=== PATIENT | female | born 1950 | race Caucasian/White ===

== ENCOUNTER 2018-08-26 02:16 | Outpatient (CLI) | payer OTHER, SELFPAY ==
[2018-08-26 09:19] LABS: Anion Gap 8.7 mmol/L (3-11); BUN 13 mg/dL (7-18); CO2 29.3 mmol/L (21.0-32.0); CREATININE 0.84 mg/dL (0.55-1.02); Calcium 9.2 mg/dL (8.5-10.1); Chloride 105 mmol/L (98-107); Cholesterol 215 mg/dL (50-200); Glucose 97 mg/dL (70-100); HDL Cholesterol 86 mg/dL (40-60); LDL CHOLESTEROL 111 mg/dL (<100); Potassium 4.1 mmol/L (3.5-5.1); Sodium 143 mmol/L (136-145); Triglyceride 44 mg/dL (30-150)
== END 2018-08-26 02:36 ==
PROVIDERS: PCP Nurse Practitioner Family; Visit Provider Nurse Practitioner Family
DX: Z00.00 Encounter for general adult medical examination without abnormal findings (principal); Z13.220 Encounter for screening for lipoid disorders; Z13.228 Encounter for screening for other metabolic disorders
CPT/HCPCS: 36415; 80048; 80061; 83721

== ENCOUNTER 2018-09-02 16:56 | Outpatient (REF) | payer OTHER, SELFPAY ==
[2018-09-05 10:28] LABS: CA 125 9 U/mL (0-30)
== END 2018-09-02 17:16 ==
LOC: NCHCN 16:56
PROVIDERS: PCP Nurse Practitioner Family; Visit Provider Nurse Practitioner Family
DX: Z12.73 Encounter for screening for malignant neoplasm of ovary (principal); Z80.41 Family history of malignant neoplasm of ovary
CPT/HCPCS: 86304

== ENCOUNTER 2018-09-14 00:42 | Outpatient (CLI) | payer OTHER, SELFPAY ==
--- NOTE | 2018-09-14 15:30 | DI.MAMMO_ITS ---
SYMPTOM/DIAGNOSIS: SCREENING, Z12.39 MAMMOGRAMS: Mammograms were interpreted according to the usual protocol including computer analysis with CAD system, tomosynthesis and C view imaging. Comparison with prior examinations. Breast density D. No suspicious masses or microcalcifications are seen. There is no definite evidence of malignancy. IMPRESSION: Negative mammogram. Routine screening is recommended. Category I. MQSA ASSESSMENT OF FINDINGS: Negative. Category 1. Patient will receive a letter notifying them of these results. BI-RADS category D. The breasts are extremely dense, which lowers the sensitivity of mammography.
== END 2018-09-14 01:02 ==
PROVIDERS: PCP Nurse Practitioner Family; Visit Provider Nurse Practitioner Family
DX: Z00.00 Encounter for general adult medical examination without abnormal findings (principal); Z12.31 Encounter for screening mammogram for malignant neoplasm of breast
CPT/HCPCS: 77063; 77067

== ENCOUNTER 2019-11-03 14:03 | Observation (INO) | payer OTHER, SELFPAY ==
[2019-11-03] VITALS (65 sets, daily range): BP systolic 86–138; BP diastolic 52–86; PULSE 58–209; RESP 12–27; TEMP 36.7–37.2; O2SAT 96–100
--- NOTE | 2019-11-03 14:00 | RT.EKG_ITS ---
APPROVED REPORT Exam: Resting ECG Patient Location: E HR:84 bpm ECG Measurements Heart Rate 84 AXIS SD 140 P 103 QRSd 78 QRS 92 QT 360 T 61 QTc 427 <Conclusion> Sinus rhythm...normal P axis, V-rate 84
--- NOTE | 2019-11-03 14:00 | RT.EKG_ITS ---
APPROVED REPORT Exam: Resting ECG Patient Location: E HR:204 bpm ECG Measurements Heart Rate 204 AXIS VT 123 P 78 QRSd 76 QRS 101 QT 255 T 12 QTc 472 <Conclusion> Supraventricular tachycardia...
--- NOTE | 2019-11-03 14:14 | W.ED.GENAD ---
Discharge Plan Disposition Patient Disposition: [facility] INPATIENT Condition: Improving Discharge Details Chief Complaint: Palpitatns Clinical Impression: SVT (supraventricular tachycardia), Elevated troponin I level Admit Date/Time: 11/03/19 18:09 Admit Provider: Rancho Robledo Attending Provider: Rancho Robledo Primary Care Provider: Mariajose Cerda ED Provider: Aranza Ramirez Discharge Instructions Instructions: Supraventricular Tachycardia (ED) Referrals: Rancho Cerrato MD [MD CONSULTING PHYSICIAN] - Mariajose Cerda [Primary Care Provider] - Discharge Data Discharge Date/Time-TO BE ENTERED AT DEPARTURE: 11/03/19 18:53 Medical Decision Making <Federica Tobar - Last Filed: 11/04/19 10:03> Patient presents in SVT with a rate of 204 is awake and alert responsive denies chest pain. Patient states that she was washing her windows prior to arrival onset began approximately 2 hours ago, when began having palpitations. Denies any fever, nausea vomiting diarrhea or any other symptoms. No significant past medical history no known drug allergies does not take medications on a regular basis. 1422: Patient presented in SVT with a rate of 209, there was an episode of possible loss of consciousness patient quickly became arousable after RN reports sternal rub. My presented back into the room she was awake and talking stated she just closed her eyes for a second. Is milligrams of adenosine was given rapid IV push by staffing program manager, patient was placed on pads and nuclear monitoring technician prior to administration of medication. Dr. Mejia ER attending was at bedside for assistance. Patient did convert into a normal sinus rhythm after the first 6 mg of adenosine with a rate of 86, her blood pressure currently now is 118/66, sating 98% on room air. At this time cardiac work-up is pending including serial troponins they are doing a repeat EKG status post conversion from SVT. 1454: Spoke with Don patient significant other regarding patient condition and work-up, told patient that significant other called. EXAM: XR PORTABLE CHEST AP CLINICAL HISTORY: SVT TECHNIQUE: 2D digital imaging was performed. COMPARISON: No exams were available for comparison FINDINGS: MEDIASTINUM: Normal. HEART: Normal. PULMONARY VASCULATURE: Normal. LUNGS: The lungs appear hyperinflated suggesting COPD. No focal consolidating infiltrates. PLEURAL SPACE: No pleural effusion or pneumothorax. BONE:Within normal limits for the patient's age. OTHER FINDINGS:There is overlying monitoring equipment present. IMPRESSION: No acute pulmonary findings. Plan is to repeat troponin now discharged with a Holter monitor and have patient follow-up with cardiology. Patient has continued to be chest pain-free, vital signs are stable patient is ambulatory up to the bathroom without difficulty. Discussed initial lab results with patient, discuss strict return instructions, verbalized understanding. Instructed to return to the ED for any worsening chest pain, shortness of breath or palpitations. Will place patient on cardiology follow-up list. 1713: Repeat troponin came back elevated at 0.49 this changes disposition to most likely admission for observation repeat serial troponins. Care is to be handed off to oncoming provider ASPEN Mims. Being to bedside evaluation done in conjunction with Aranza she agrees with plan of care. Lab Data Lab results reviewed: Yes I reviewed the patient's lab results. <Cuco Mejia MD - Last Filed: 11/03/19 18:33> Patient examined [id number] in conjunction with Ms. Tobar. I agree with her assessment and plan. I was present for hall portions of bedside management including IV push of adenosine. <ASPEN Mims - Last Filed: 11/03/19 23:29> Care transition to myself from Sunita Coker NP, with repeat troponin pending. Please please see her initial note regarding history, physical exam and concerns thus far. In brief, the patient presents today in SVT and was converted with adenosine. Has not had any chest pain. Normal laboratory evaluation thus far. EKG after conversion showed normal sinus rhythm with no acute ischemic changes. Repeat troponin is bumped at 0.49. Repeat EKG does not show any evidence of ischemia, this was reviewed by Dr. Mejia and appears unchanged from previous. At this point, this is most likely associated with demand ischemia. Her initial heart rate when she came in was 209. Discussed the case with hospitalist, Dr. Robledo, who agrees to admit the patient for continued monitoring. Discussed admission with the patient who is in agreement. HPI <Federica Tobar - Last Filed: 11/04/19 10:03> General Mode of arrival: ambulatory. Date/Time Provider Initiated Documentation: 11/03/19 14:12. Limitations to Documentation: physical limitation. Information obtained by: patient. HPI Narrative: Patient presents in SVT with a rate of 204 is awake and alert responsive denies chest pain. Patient states that she was washing her windows prior to arrival onset began approximately 2 hours ago, when began having palpitations. Denies any fever, nausea vomiting diarrhea or any other symptoms. No significant past medical history no known drug allergies does not take medications on a regular basis. Related Data Home Medications Medication Instructions Recorded Confirmed Unknown [No Known Home Meds] 11/03/19 11/03/19 Allergies Allergy/AdvReac Type Severity Reaction Status Date / Time No Known Allergies Allergy Unverified 11/03/19 14:27 Review of Systems <Federicagarcia [place]oddton - Last Filed: 11/04/19 10:03> Narrative: Constitutional: Negative for weight loss, alert and oriented, well groomed, normal body habitus, appears comfortable. HEENT: Denies trauma, headaches, blurry vision, nasal discharge, sore throat, trouble swallowing. Chest: Denies chest pain,hypertension. Positive palpitations. Respiratory: Denies Shortness of breath, cough, hemoptysis. GI: Denies abdominal pain, nausea, vomiting, diarrhea, constipation. : Denies dysuria, hematuria, flank pain, rectal bleeding. Neuro: Denies dizziness, blurry vision, weakness, syncope, headache or facial numbness. Hematologic: Denies easy bruising, intolerance to heat or cold, hair loss. PFSH <Federica [facility] Filed: 11/04/19 10:03> Medical History Asthma (Chronic) Knotting of intestine, bowel or colon (Acute) Surgical History History of appendectomy (Chronic) History of tonsillectomy (Chronic) Hx of colonoscopy (Chronic) Social History Smoking/Tobacco Use Status: Never Alcohol Intake: never Substance use type: does not use Do you feel safe at home: Yes Do you feel safe in your relationship?: Yes Exam [facility] Filed: 11/04/19 10:03> Narrative Exam Narrative: Constitutional: Alert and oriented x3. Appears stated age. Normal body habitus. Head: Normocephalic, no trauma. Eyes: Pupils PERRLA, Red reflex noted, EOM's intact. Eyelids symmetrical without lesions, discharge, or swelling. ENT: Bilateral TM's WNL, External ear normal to inspection, no mastoid TTP, swelling, or erythema, Nasal turbinates WNL, no nasal discharge. Normal dentition, Posterior pharynx WNL, no exudate. Chest: Narrow complex tachycardia consistent with SVT at a rate of 209 initially, converted with 1 dose of adenosine 6 mg rapid IV push patient remained stable throughout the procedure, normal S1, S2, distal pulses intact. Resp: Lungs clear to auscultation bilaterally, no wheezes, rales, or rhonchi. Musculoskeletal: Normal gait, 5/5 strength to all four extremities. Skin: No suspicious rashes or lesions. Capillary refill less than 2 sec. Neurologic: Cranial nerves II-XII intact. Alert and oriented x 3. DTR's intact. Hematologic/Lymphatic: No ecchymosis, no lymphadenopathy. Critical Care Time <Federica Tobar - Last Filed: 11/04/19 10:03> Critical Care Time Critical Care Time: Yes Total Critical Care Time: 35 Attestation: I spent greater than 35 minutes addressing this patient's acute life threatening illness. This time was spent engaged in actions directly related to the patient's care. Failure ti initiate these interventions would have likely resulted in clinically significant or life threatening deterioration in the patients condition.
--- NOTE | 2019-11-03 14:15 | RT.EKG_ITS ---
APPROVED REPORT Exam: Resting ECG Patient Location: E HR:74 bpm ECG Measurements Heart Rate 74 AXIS OH 134 P 69 QRSd 77 QRS 85 QT 379 T 61 QTc 416 <Conclusion> Sinus rhythm...normal P axis, Atrial premature complex.
[2019-11-03] MEDS: Normal Saline 1,000 ML 1000 ML IV (14:19)
[2019-11-03] MEDS: Adenosine 6 MG/2 ML VIAL IVP (14:19)
[2019-11-03 14:22] LABS: Abs Immature Grans 0.01 k/cumm (0.0-0.09); Absolute Basophil Count 0.03 k/cumm (0.0-0.2); Absolute Eosinophil Count 0.08 k/cumm (0.0-0.7); Absolute Lymphocyte Count 1.73 k/cumm (1.2-3.4); Absolute Monocyte Count 0.54 k/cumm (0.11-0.7); Absolute Neutrophil Count 5.42 k/cumm (1.2-6.7); Basophils % 0.4; HCT 39.5 % (36.0-46.0); Immature Grans % 0.1 %; Lymphocytes % 22.2; Mean Corp. HGB Concentration 32.9 g/dL (32.0-36.0); Mean Corpuscular Hemoglobin 29.5 pg (27.0-33.0); Mean Corpuscular Volume 89.8 fL (80-95); Mean Platelet Volume 8.9 fL (8.0-11.0); Monocytes % 6.9; Neutrophils % 69.4; Platelet Count 393 x1000/uL (130-400); RBC Distribution Width 13.3 % (11.7-14.6); White Blood Cell Count 7.81 k/cumm (4.4-10.8)
[2019-11-03 14:37] LABS: ALT 23 U/L (14-59); AST 24 U/L (15-37); Albumin 3.3 g/dL (3.4-5.0); Alkaline Phosphatase 64 U/L (46-116); Anion Gap 9.1 mmol/L (3-11); BUN 11 mg/dL (7-18); Bilirubin, Total 0.4 mg/dL (0.2-1.0); CO2 26.9 mmol/L (21.0-32.0); CREATININE 0.83 mg/dL (0.55-1.02); Calcium 9.3 mg/dL (8.5-10.1); Chloride 101 mmol/L (98-107); Glucose 111 mg/dL (74-106); Magnesium 1.9 mg/dL (1.8-2.4); Potassium 4.1 mmol/L (3.5-5.1); Sodium 137 mmol/L (136-145); Total Protein 7.1 g/dL (6.4-8.2); Troponin I < 0.05 ng/mL (<0.06)
--- NOTE | 2019-11-03 14:41 | DI.RAD_ITS ---
EXAM: XR PORTABLE CHEST AP CLINICAL HISTORY: SVT TECHNIQUE: 2D digital imaging was performed. COMPARISON: No exams were available for comparison FINDINGS: MEDIASTINUM: Normal. HEART: Normal. PULMONARY VASCULATURE: Normal. LUNGS: The lungs appear hyperinflated suggesting COPD. No focal consolidating infiltrates. PLEURAL SPACE: No pleural effusion or pneumothorax. BONE:Within normal limits for the patient's age. OTHER FINDINGS:There is overlying monitoring equipment present. IMPRESSION: No acute pulmonary findings. DATA REPOSITORY: RADIATION DOSE DELIVERED:
[2019-11-03 14:57] LABS: TSH 2.03 uIU/mL (0.36-3.74)
--- NOTE | 2019-11-03 16:34 | NUR.NOTE ---
Nursing Note: Referral fax to cardiology
[2019-11-03 16:54] LABS: Troponin I 0.49 ng/mL (<0.06)
--- NOTE | 2019-11-03 17:56 | W.PM.HP.N ---
Date of service: 11/03/19 Time of Service: 17:57 Assessment and Plan Assessment and plan (1) SVT (supraventricular tachycardia): Status: Chronic Assessment and plan: PSVT. Only documented episode, though more likely than not that prior episodes also SVT. No precipitant evident. Troponin bump likely demand ischemia though at present cannot exclude primary ACS, and as potential trigger (this is doubtful). Will monitor overnight and complete r/o. Will also order ECHO though may have to be done as outpatient. Would not institute any preventive treatment at this point -- unless recurrence documented. Reviewed ADs, requests Full Code. History of Present Illness History of Present Illness Chief Complaint: palpitation Narrative: 69 female here with sudden onset palps, several hours. In ER SVT 200 noted, converted with Adenosine. At no point had CP or SOB, and feels fine at present. Initial trop neg, #2 is 0.49. Post conversion EKG WNL Denies EtOH or recreational drugs. TSH and electrolytes WNL. States has had some 5 years of episodic palps, up to twice a year, usually last 20' or so.. Has had Holters but arrythmia never captured. Says today's episode similar, though more prolonged. Review of Systems All systems reviewed & are unremarkable except as noted in HPI and below PFSH Medical History Asthma (Chronic) Knotting of intestine, bowel or colon (Acute) Surgical History History of appendectomy (Chronic) History of tonsillectomy (Chronic) Hx of colonoscopy (Chronic) Social History Smoking/Tobacco Use Status: Never Alcohol Intake: never Substance use type: does not use Do you feel safe at home: Yes Do you feel safe in your relationship?: Yes Meds Home Medications and Allergies Home Medications Medication Instructions Recorded Confirmed Type Unknown [No Known Home Meds] 11/03/19 11/03/19 History Allergies Allergy/AdvReac Type Severity Reaction Status Date / Time No Known Allergies Allergy Unverified 11/03/19 14:27 Exam Narrative Exam Narrative: 110/68, 73, 37.0, 17, 98% RA. HEENT unremarkable. neck supple, lungs clear, heart RRR w/o MRG; abdomen soft NT; extremities w/o edema, pulse 2+/=; neuro Ox3, nonfocal Results Labs Result diagrams: 11/03/19 14:10 11/03/19 14:10 Labs: Laboratory Results - last 24 hr 11/03/19 11/03/19 11/03/19 14:10 14:10 14:10 WBC 7.81 RBC 4.40 Hgb 13.0 Hct 39.5 MCV 89.8 MCH 29.5 MCHC 32.9 RDW 13.3 Plt Count 393 MPV 8.9 Immature Gran % 0.1 Neutrophils % 69.4 Lymphocytes % 22.2 Monocytes % 6.9 Eosinophils % 1.0 Basophils % 0.4 Absolute Neutrophils 5.42 Absolute Lymphocytes 1.73 Absolute Monocytes 0.54 Absolute Eosinophils 0.08 Absolute Basophils 0.03 Sodium 137 Potassium 4.1 Chloride 101 Carbon Dioxide 26.9 Anion Gap 9.1 BUN 11 Creatinine 0.83 Estimated GFR/1.73 m2 >= 60.00 Glucose 111 H Calcium 9.3 Magnesium 1.9 Total Bilirubin 0.4 AST 24 ALT 23 Alkaline Phosphatase 64 Troponin I < 0.05 Total Protein 7.1 Albumin 3.3 L TSH 2.03 11/03/19 16:25 WBC RBC Hgb Hct MCV MCH MCHC RDW Plt Count MPV Immature Gran % Neutrophils % Lymphocytes % Monocytes % Eosinophils % Basophils % Absolute Neutrophils Absolute Lymphocytes Absolute Monocytes Absolute Eosinophils Absolute Basophils Sodium Potassium Chloride Carbon Dioxide Anion Gap BUN Creatinine Estimated GFR/1.73 m2 Glucose Calcium Magnesium Total Bilirubin AST ALT Alkaline Phosphatase Troponin I 0.49 H* Total Protein Albumin TSH Last Vital Signs Temp 37.0 C 11/03/19 14:07 Pulse 75 11/03/19 16:00 Resp 17 11/03/19 16:20 BP 110/68 11/03/19 16:00 Pulse Ox 98 11/03/19 16:20 COVID-19 Screening Have you,or household,traveled outside [place] in last 14 days?: No Had IN PERSON contact w/suspected or confirmed C-19 person: No
[2019-11-03 21:36] LABS: Troponin I 0.76 ng/mL (<0.06)
[2019-11-04] VITALS (21 sets, daily range): BP systolic 91–136; BP diastolic 46–74; PULSE 54–74; RESP 13–21; TEMP 36.9–37.2; O2SAT 97–99
--- NOTE | 2019-11-04 06:30 | RT.EKG_ITS ---
APPROVED REPORT Exam: Resting ECG Patient Location: I HR:60 bpm ECG Measurements Heart Rate 60 AXIS AK 137 P 79 QRSd 84 QRS 92 QT 451 T 71 QTc 449 <Conclusion> Sinus rhythm...normal P axis, V-rate 60- 99
--- NOTE | 2019-11-04 07:21 | NUR.NOTE ---
EKG done as orderfed.
[2019-11-04 07:34] LABS: Troponin I 0.37 ng/mL (<0.06)
--- NOTE | 2019-11-04 10:38 | PGE_ITS ---
Date of Service Date of service: 11/04/19 Time of Service: 10:38 Assessment and Plan Assessment and plan (1) SVT (supraventricular tachycardia): Status: Chronic Assessment and plan: For my review of the EKG I think this is a reentry AV karon tachycardia based on the short RP intervals and appears to have concealed P waves within the T waves. However the patient needs a formal evaluation by an pacs specialist. Patient is feeling fine now would like to return home. Her vital signs are stable. I discussed the case with [facility] manual plate filler on-call, Dr. Gibbs, who recommended initiation of a beta umberto, Toprol XL 50 mg daily and referral to pacs specialist. I discussed this w/ Charleen. She is leary of taking any medications. I explained to her that because of the prolonged episode and potential for adverse events if she has another episode particularly while driving or doing any dangerous work, she ought to consider going on low dose Beta umberto and get outpatient follow up with a local manual plate filler who then can refer her to pacs specialist at [facility]. She also needs outpatient echo to evaluate for structural heart disease and will need some form of stress testing to screen for ischemic HD. I will make a referral to Dr. Cerrato or Dr. Larkin here at [facility] for next week and set up outpatient cardiac event recorder and echo. They can then determine the best form of stress test and maek referral to supplier quality engineer. (2) Elevated troponin I level: Status: Acute Assessment and plan: No ischemic or injury pattern on her repeat EKG this a.m. therefore, the transient elevation in her troponin is likely rate related ischemia. Subjective Subjective Interval history since last seen: 69-year-old female non-smoker with no previous diagnosed cardiac history who presents emergency department with acute persistent PSVT with a heart rate of 204 bpm. Symptoms began around 12 noon yesterday and persisted for couple hours when she presented emergency department around 2 PM yesterday. There was no antecedent chest pain or pressure or dyspnea nor any dizziness or lightheadedness. However while in the emergency department she had a syncopal spell. Her PSVT was aborted with a single dose of adenosine 6 mg IV. EKGs were taken before and after of the PSVT. Troponins were checked and initial troponin is less than 0.05 but peaked at 0.76 last night and is currently down to 0.37 this morning. Repeat EKG was done this morning and shows no acute ischemic changes. Patient's had a history of palpitations for several years now had a previous Holter monitor in 2011 that showed no atrial or ventricular tachydysrhythmias. Normally when she gets these spells only last up to 20 minutes and usually either self abort or she will do carotid massage and the episodes will abort. She is generally very physically active and has no exertional dyspnea or exertional chest pain. There is no family history of arrhythmias. Her father at age 89 due to congestive heart failure but was also a smoker. Exam Narrative Exam Narrative: Petite tanned female who is alert and oriented person place time circumstance. HEENT is unremarkable. Neck is supple without JVD normal carotid pulses no bruits no thyromegaly. Lungs are clear to auscultation. Heart is regular rate and rhythm without appreciable murmur rub or gallop. Extremities without peripheral cyanosis or edema. Objective Objective Clinical Data: Abnormal lab results 11/03/19 11/03/19 11/03/19 Range/Units 14:10 16:25 21:07 Glucose 111 H (74-106) mg/dL Troponin I 0.49 H* 0.76 H* (<0.06) ng/mL Albumin 3.3 L (3.4-5.0) g/dL 11/04/19 Range/Units 06:05 Glucose (74-106) mg/dL Troponin I 0.37 H* (<0.06) ng/mL Albumin (3.4-5.0) g/dL Vital Signs Temperature 36.9 C 11/04/19 08:30 Temperature Source Temporal Artery Scan 11/04/19 08:30 Pulse 61 11/04/19 08:31 Pulse 72 11/04/19 08:31 Respiratory Rate 13 11/04/19 08:31 Respiratory Effort 11/04/19 08:30 Respiratory Depth Normal 11/04/19 08:30 Respiratory Pattern Normal 11/04/19 08:30 Blood Pressure 117/59 L 11/04/19 08:31 Blood Pressure Mean 74 11/04/19 08:31 Blood Pressure Position Supine 11/04/19 08:30 Pulse Oximetry 97 11/04/19 08:31 Oxygen Delivery Method Room Air 11/04/19 08:30 Oxygen Flow Rate 0 11/04/19 08:30 Pain Level 0 11/04/19 08:30 Intake & Output 11/03/19 11/03/19 11/04/19 11:59 23:59 11:59 Intake Total 1000 / 1000 240 / 240 Output Total 425 / 425 400 / 400 Balance 575 / 575 -160 / -160 Weight 38.9 kg 38.8 kg Intake: IV 1000 / 1000 Oral 240 / 240 Output: Urine 425 / 425 400 / 400 Other: Urine Color Yellow Yellow Urine Appearance Clear Clear Urine Odor None None Voiding Methods Bedside Commode Bedside Commode Laboratory Results WBC 7.81 k/cumm (4.4-10.8) 11/03/19 14:10 RBC 4.40 m/cumm (4.00-5.20) 11/03/19 14:10 Hgb 13.0 g/dL (12.0-15.5) 11/03/19 14:10 Hct 39.5 % (36.0-46.0) 11/03/19 14:10 MCV 89.8 fL (80-95) 11/03/19 14:10 MCH 29.5 pg (27.0-33.0) 11/03/19 14:10 MCHC 32.9 g/dL (32.0-36.0) 11/03/19 14:10 RDW 13.3 % (11.7-14.6) 11/03/19 14:10 Plt Count 393 x1000/uL (130-400) 11/03/19 14:10 MPV 8.9 fL (8.0-11.0) 11/03/19 14:10 Immature Gran % 0.1 % 11/03/19 14:10 Neutrophils % 69.4 11/03/19 14:10 Lymphocytes % 22.2 11/03/19 14:10 Monocytes % 6.9 11/03/19 14:10 Eosinophils % 1.0 11/03/19 14:10 Basophils % 0.4 11/03/19 14:10 Absolute Neutrophils 5.42 k/cumm (1.2-6.7) 11/03/19 14:10 Absolute Lymphocytes 1.73 k/cumm (1.2-3.4) 11/03/19 14:10 Absolute Monocytes 0.54 k/cumm (0.11-0.7) 11/03/19 14:10 Absolute Eosinophils 0.08 k/cumm (0.0-0.7) 11/03/19 14:10 Absolute Basophils 0.03 k/cumm (0.0-0.2) 11/03/19 14:10 Sodium 137 mmol/L (136-145) 11/03/19 14:10 Potassium 4.1 mmol/L (3.5-5.1) 11/03/19 14:10 Chloride 101 mmol/L (98-107) 11/03/19 14:10 Carbon Dioxide 26.9 mmol/L (21.0-32.0) 11/03/19 14:10 Anion Gap 9.1 mmol/L (3-11) 11/03/19 14:10 BUN 11 mg/dL (7-18) 11/03/19 14:10 Creatinine 0.83 mg/dL (0.55-1.02) 11/03/19 14:10 Estimated GFR/1.73 m2 >= 60.00 (mL/min/1.73m2) 11/03/19 14:10 Glucose 111 mg/dL (74-106) H 11/03/19 14:10 Calcium 9.3 mg/dL (8.5-10.1) 11/03/19 14:10 Magnesium 1.9 mg/dL (1.8-2.4) 11/03/19 14:10 Total Bilirubin 0.4 mg/dL (0.2-1.0) 11/03/19 14:10 AST 24 U/L (15-37) 11/03/19 14:10 ALT 23 U/L (14-59) 11/03/19 14:10 Alkaline Phosphatase 64 U/L (46-116) 11/03/19 14:10 Troponin I 0.37 ng/mL (<0.06) H* 11/04/19 06:05 Total Protein 7.1 g/dL (6.4-8.2) 11/03/19 14:10 Albumin 3.3 g/dL (3.4-5.0) L 11/03/19 14:10 TSH 2.03 uIU/mL (0.36-3.74) 11/03/19 14:10
--- NOTE | 2019-11-04 11:04 | INITIAL_ITS ---
- If Service Date Differs Date of service: 11/04/19 Time of Service: 11:04 Care Management Initial Assess REASON FOR HOSPITALIZATION:: Supraventricular tachycardia (SVT) PAST MEDICAL HISTORY/PAST SURGICAL HISTORY:: Medical History: Asthma (Chronic) and Knotting of intestine, bowel or colon (Acute). Surgical History: History of appendectomy (Chronic), History of tonsillectomy (Chronic), and Hx of colonoscopy (Chronic). PREVIOUS FUNCTIONAL STATUS/SOCIAL/FAMILY SUPPORTS:: Charleen lives in [facility] with [place], her significant other. 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 In her free time, she enjoys reading, bike riding, gardening, and exercising. Charleen drives and is independent at baseline. Her significant other is a source of support for her. CURRENT FUNCTIONAL STATUS:: Charleen is sitting on the side of the bed when CM comes to meet with her. She is pleasant and easily engages in conversation. She talks about her recent care home and fears associated with the next chapter of her life. CM will continue to follow. ADVANCE DIRECTIVES:: None on file. Has patient been provided with info about the portal/API?: Yes Did the patient sign up for the portal?: Yes (Previously enrolled.) CODE STATUS:: Full Code INSURANCE COVERAGE / FINANCIAL ISSUES:: Health Plans. CURRENT HOME/COMMUNITY SERVICES/EQUIPMENT:: No home/community services or equipment. PRIMARY CARE PHYSICIAN:: ASHLEY Rogers POTENTIAL DISCHARGE NEEDS:: Follow up appointments with PCP and cardiology on an outpatient basis. PATIENT/FAMILY EDUCATION NEEDS:: Discharge instructions, limitations, follow up plan of care, including Ask Me Three and self-management. ANTICIPATED BARRIERS TO DISCHARGE:: No anticipated barriers. TRANSPORTATION:: Via private vehicle with significant other. PLAN:: Anticipate Charleen will be discharged home with no new services when medically cleared by provider. She will be driven home via private vehicle with her significant other when ready. CM will continue to follow.
--- NOTE | 2019-11-04 11:05 | W.PM.DS.N ---
Date of service: 11/04/19 Time of Service: 11:05 DS: Diagnosis Discharge Diagnosis (1) SVT (supraventricular tachycardia): Status: Chronic Asessment and Plan: Patient's PSVT aborted after single dose of adenosine 6 mg IV given in the emergency department. Patient is remained in sinus rhythm since then has been asymptomatic since admission. She did have a syncopal spell while in the emergency department during her PSVT. Patient will be scheduled for outpatient 30-day cardiac event recorder and an outpatient echocardiogram to be done this next week. Phone message has been left with specialty clinic regarding the need for cardiology follow-up in the next week with Dr. Cerrato. Patient will need a referral to an assurance specialist at [facility]. This can be facilitated by Dr. Cerrato's office. Patient was prescribed Toprol XL 25 mg nightly and advised to start on aspirin 81 mg daily. Patient will need an outpatient stress MPI for evaluation of underlying ischemic heart disease. However this type of test will be determined by Dr. Cerrato and can be arranged as an outpatient. (2) Elevated troponin I level: Status: Acute Asessment and Plan: Transient elevation of her troponin level was associated with PSVT and was felt to be rate related ischemia. She had no residual symptoms and repeat EKG showed no ischemic or injury pattern. An outpatient echocardiogram will be done next week to evaluate for any structural abnormalities. An outpatient stress test will need to be performed as well and this can be arranged with Dr. Cerrato's office. If there is no evidence for ischemic heart disease and no structural abnormalities of her heart that I think an assurance specialist may need to consider further testing. In the interim the patient will be started on low-dose beta-umberto at bedtime along with an aspirin as outlined above. Discharge Plan Disposition Patient Disposition: HOME Condition: Good Discharge Details Chief Complaint: Palpitatns Clinical Impression: SVT (supraventricular tachycardia), Elevated troponin I level Reason For Visit: SVT Admit Date/Time: 11/03/19 18:09 Admit Provider: Rancho Robledo Attending Provider: Rancho Robledo Primary Care Provider: Mariajose Cerda ED Provider: Aranza Ramirez Hospital Course Hospital Course: 69-year-old female non-smoker with no previous diagnosed cardiac history who presents emergency department with acute persistent PSVT with a heart rate of 204 bpm. Symptoms began around 12 noon yesterday and persisted for couple hours when she presented emergency department around 2 PM yesterday. There was no antecedent chest pain or pressure or dyspnea nor any dizziness or lightheadedness. However while in the emergency department she had a syncopal spell. Her PSVT was aborted with a single dose of adenosine 6 mg IV. EKGs were taken before and after of the PSVT. Troponins were checked and initial troponin is less than 0.05 but peaked at 0.76 last night and is currently down to 0.37 this morning. Repeat EKG was done this morning and shows no acute ischemic changes. Patient's had a history of palpitations for several years now had a previous Holter monitor in 2011 that showed no atrial or ventricular tachydysrhythmias. Normally when she gets these spells only last up to 20 minutes and usually either self abort or she will do carotid massage and the episodes will abort. She is generally very physically active and has no exertional dyspnea or exertional chest pain. There is no family history of arrhythmias. Her father at age 89 due to congestive heart failure but was also a smoker. She has remained asymptomatic since of her PSVT. Home Meds and New Rx's Prescriptions: New aspirin 81 mg tablet,delayed release (DR/EC) 81 mg PO DAILY Qty: 90 RF: 0 metoprolol succinate 25 mg tablet extended release 24 hr 25 mg PO HS Qty: 30 RF: 1 Discharge Instructions Instructions: Supraventricular Tachycardia (ED) Referrals: Rancho Cerrato MD [ CONSULTING PHYSICIAN] - (Specialty clinic at [facility] will call you with the date and time of your appointment) Mariajose Cerda [Primary Care Provider] - (Call Mariajose Cerda's office on Wednesday for follow up appointment in the next week) Activity:: Activity as Tolerated Equipment/Supplies:: No Equipment Needed Diet:: Normal Diet Discharge Orders Discharge Orders: Discharge Order (Routine); Ordered 11/04/19 Ordered By: Miguel Sherwood Other Ambulatory Orders: US echocardiogram (Routine) Timeframe: 5 Days Facility: [facility] - Location: DIAGNOSTIC IMAGING DEPT Ordered By: Miguel Sherwood Cardiac Event Recorder (Outpt) (ONCE) Timeframe: [id number] Location: None Selected Ordered By: Miguel Stranathan DS: Summary Status at Discharge Functional status at discharge: independent ambulation Overall status at discharge: patient is back to baseline Mental Status: mental status grossly normal Speech and Movement: speech and movement normal Mood: congruent mood Affect: normal affect Exam Psych Mental Status: mental status grossly normal Speech and Movement: speech and movement normal Mood: congruent mood Affect: normal affect DS: Data Vitals/I&O Vitals and I&O: Vital Signs Temperature 36.9 C 11/04/19 08:30 Temperature Source Temporal Artery Scan 11/04/19 08:30 Pulse 61 11/04/19 08:31 Pulse 72 11/04/19 08:31 Respiratory Rate 13 11/04/19 08:31 Respiratory Effort 11/04/19 08:30 Respiratory Depth Normal 11/04/19 08:30 Respiratory Pattern Normal 11/04/19 08:30 Blood Pressure 117/59 L 11/04/19 08:31 Blood Pressure Mean 74 11/04/19 08:31 Blood Pressure Position Supine 11/04/19 08:30 Pulse Oximetry 97 11/04/19 08:31 Oxygen Delivery Method Room Air 11/04/19 08:30 Oxygen Flow Rate 0 11/04/19 08:30 Pain Level 0 11/04/19 08:30 Intake & Output 11/03/19 11/03/19 11/04/19 11:59 23:59 11:59 Intake Total 1000 / 1000 240 / 240 Output Total 425 / 425 400 / 400 Balance 575 / 575 -160 / -160 Weight 38.9 kg 38.8 kg Intake: IV 1000 / 1000 Oral 240 / 240 Output: Urine 425 / 425 400 / 400 Other: Urine Color Yellow Yellow Urine Appearance Clear Clear Urine Odor None None Voiding Methods Bedside Commode Bedside Commode Data Completed and Pending Labs on day of discharge: Labs from last 24 hours 11/04/19 11/03/19 11/03/19 06:05 21:07 18:20 WBC RBC Hgb Hct MCV MCH MCHC RDW Plt Count MPV Immature Gran % Neutrophils % Lymphocytes % Monocytes % Eosinophils % Basophils % Absolute Neutrophils Absolute Lymphocytes Absolute Monocytes Absolute Eosinophils Absolute Basophils Sodium Potassium Chloride Carbon Dioxide Anion Gap BUN Creatinine Estimated GFR/1.73 m2 Glucose Calcium Magnesium Total Bilirubin AST ALT Alkaline Phosphatase Troponin I 0.37 H* 0.76 H* Total Protein Albumin TSH COVID-19 PCR Pending Nasopharyn COVID-19 PCR Pending Ref Test Perform Site Pending 11/03/19 11/03/19 11/03/19 16:25 14:10 14:10 WBC 7.81 RBC 4.40 Hgb 13.0 Hct 39.5 MCV 89.8 MCH 29.5 MCHC 32.9 RDW 13.3 Plt Count 393 MPV 8.9 Immature Gran % 0.1 Neutrophils % 69.4 Lymphocytes % 22.2 Monocytes % 6.9 Eosinophils % 1.0 Basophils % 0.4 Absolute Neutrophils 5.42 Absolute Lymphocytes 1.73 Absolute Monocytes 0.54 Absolute Eosinophils 0.08 Absolute Basophils 0.03 Sodium Potassium Chloride Carbon Dioxide Anion Gap BUN Creatinine Estimated GFR/1.73 m2 Glucose Calcium Magnesium Total Bilirubin AST ALT Alkaline Phosphatase Troponin I 0.49 H* Total Protein Albumin TSH 2.03 COVID-19 PCR Nasopharyn COVID-19 PCR Ref Test Perform Site 11/03/19 14:10 WBC RBC Hgb Hct MCV MCH MCHC RDW Plt Count MPV Immature Gran % Neutrophils % Lymphocytes % Monocytes % Eosinophils % Basophils % Absolute Neutrophils Absolute Lymphocytes Absolute Monocytes Absolute Eosinophils Absolute Basophils Sodium 137 Potassium 4.1 Chloride 101 Carbon Dioxide 26.9 Anion Gap 9.1 BUN 11 Creatinine 0.83 Estimated GFR/1.73 m2 >= 60.00 Glucose 111 H Calcium 9.3 Magnesium 1.9 Total Bilirubin 0.4 AST 24 ALT 23 Alkaline Phosphatase 64 Troponin I < 0.05 Total Protein 7.1 Albumin 3.3 L TSH COVID-19 PCR Nasopharyn COVID-19 PCR Ref Test Perform Site [facility] Medical History Asthma (Chronic) Knotting of intestine, bowel or colon (Acute) Surgical History History of appendectomy (Chronic) History of tonsillectomy (Chronic) Hx of colonoscopy (Chronic) Social History Smoking/Tobacco Use Status: Never Alcohol Intake: never Substance use type: does not use Do you feel safe at home: Yes Do you feel safe in your relationship?: Yes
--- NOTE | 2019-11-04 11:26 | PDOC.CMDIS ---
- If Service Date Differs Date of service: 11/04/19 Time of Service: 11:27 LACE Index Scoring Tool - Questions: Length of Stay (in days): 1 Acuity (Admit via E.D.?): Yes E.D. Visits: 1 - Answers: Total Score: 5 Risk of Readmission: Low Risk Care Management Discharge Reason for Hospitalization: Supraventricular tachycardia (SVT) Discharge Plan: Charleen is being discharged home with no new services. She will follow up with her PCP, [facility] cardiology on an outpatient basis, and plan of care as directed. Chano, her significant other, is driving her home via private vehicle. Patient/Family Education Needs: Nursing will review discharge instructions with Charleen re medications, follow-up appointments, activity level, and how to manage care at home.
[2019-11-04 14:08] LABS: COVID-19 RT-PCR UVMMC Result Negative (Negative)
--- NOTE | 2019-12-08 14:50 | W.CARDEVENT ---
Date of service: 12/08/19 Time of Service: 14:51 Cardiac Event Recorder Referring Provider:: Rancho Cerrato Indications:: SVT Cardiac Event Note: This is a cardiac event monitor performed reportedly for diagnoses of supraventricular tachycardia The rhythm throughout was sinus. There was no supraventricular tachycardia. There was one 3 beat atrial run, which the computer read as ventricular tachycardia Average heart rate was 72. Minimum heart rate was 56. Maximum heart rate was 109 There was no atrial fibrillation
== END 2019-11-04 12:20 | disposition home or self-care (01) ==
LOC: ER 18:35 → ICU 19:04
PROVIDERS: Registered Nurse Emergency; Admitting Provider General Practice; Emergency Provider Physician Assistant; PCP Nurse Practitioner Family; Visit Provider General Practice
DX: I47.1 Supraventricular tachycardia (principal); R55 Syncope and collapse; R74.8 Abnormal levels of other serum enzymes; J45.909 Unspecified asthma, uncomplicated; Z11.59 Encounter for screening for other viral diseases
CPT/HCPCS: 36415; 80053; 93005; 93270; 96361; 96374; 99222; 99226; 99239; 99291; U0003; 71045; 83735; 84443; 84484; 85025; 93010; 99217; 99218; G0378; J0153

== ENCOUNTER 2019-11-07 08:08 | Outpatient (CLI) | payer OTHER, SELFPAY ==
--- NOTE | 2019-11-07 08:30 | DI.US_ITS ---
APPROVED REPORT EXAM: Comprehensive 2D, Doppler, and color-flow Echocardiogram Patient Location: Out-Patient Logistics Coordinator: Fartun Ma RDCS (AE) Indications: PSVT, Elevated troponin Other Information Study Quality: Good Conclusion Normal left ventricular wall thickness and chamber size. Estimated ejection fraction is 55 to 60%. There are no segmental wall motion abnormalities Normal right ventricular size and systolic function Both atria are normal in size Trileaflet aortic valve without stenosis or regurgitation Mildly thickened mitral leaflets with trace regurgitation Structurally normal pulmonic and tricuspid valves Trace tricuspid regurgitation Wall motion Left Ventricle The left ventricle is normal size. The left ventricular systolic function is normal. The left ventric ular ejection fraction is within the normal range. There is normal left ventricular wall thickness. T here is normal LV segmental wall motion. There is no ventricular septal defect visualized. LVEF is 55 -60%. Right Ventricle The right ventricle is normal size. The right ventricular systolic function is normal. The RVSP is 22 .5mmHg. Atria The left atrium size is normal. The right atrium size is normal. The interatrial septum is intact wit h no evidence for an atrial septal defect. Aortic Valve The aortic valve is normal in structure. Aortic valve is trileaflet. There is no aortic valvular sten osis. No aortic regurgitation is present. Mitral Valve The mitral valve is mildly thickened but opens well. No evidence of mitral valve stenosis. Trace mitr al regurgitation. Tricuspid Valve The tricuspid valve is normal in structure. There is no tricuspid valve stenosis. Trace tricuspid reg urgitation. Pulmonic Valve The pulmonary valve is normal in structure. There is no pulmonic valvular stenosis. There is no pulmo benjie valvular regurgitation. Great Vessels The aortic root is normal in size. The ascending aorta is normal in size. Aortic arch is not well vis ualized. IVC is normal in size and collapses >50% with inspiration. Pericardium There is no pericardial effusion. There is no pleural effusion. 2D Dimensions IVSD d PLAX 0.68 cm F: 0.6-1.0 LV Vol A2C d MOD 63.5 mL LVPW d PLAX 0.69 cm F: 0.6 - 1.0 LV Vol A4C d MOD 51.9 mL LVID d PLAX 3.78 cm F: 3.8 - 5.2 LA vol/ BSA A2C s A-L 13.8 mL/m2 LVDs 2.35 cm F: 2.2 - 3.5 LA vol/ BSA A4C s A-L 12.8 mL/m2 Ao Root d 2.56 cm F: 2.7 - 3.3 LA Vol/ BSA Biplane s A-L 13.7 mL/m2 RA Area A4C 7.90 cm2 LA Area A4C s MOD 8.08 cm2 RA Vol/ BSA A4C s A-L 15.6 mL/m2 LA Area A2C s MOD 8.63 cm2 Ao Asc Diam d 2.55 cm F: 2.3 - 3.1 LV EF A4C MOD 56.6 % LV EF Teichholz 67.7 % LV EF A2C MOD 58.9 % LVEF (Mai's) 56.28 % F: 54 - 74 LV EF Biplane MOD 56.3 % LV Volume 51.35 mL F: 46 - 106 SV 32.98 mL LV Volume Index 38.90 mL/m2 F: 29 - 61 SV Index 24.82 mL/m2 LV Vol Biplane MOD 58.6 mL FS 37.00 % M-Mode TAPSE 2.21 cm (M/F) >1.7 LV Diastology MV E' medial 0.086 (>0.07 m/s) E/A Ratio 1.2 LV E/e MED 7.10 (<14) MV E Vmax 0.61 (0.4-1.3 m/s) MV E' lateral 0.138 (>0.1 m/s) MV A Vmax 0.50 (0.4-1.3 m/s) LV E/e LAT 4.40 (<14) MV E/A Ratio 1.18 MV E/E' medial 7.11 MV E/E' lateral 4.40 Aortic Valve LVOT Area 2.24 cm2 AoV Area Vmax 1.65 cm2 LVOT Vmax 0.87 m/s AoV Area/ BSA (Vmax) 1.24 cm2/m2 LVOT Mean Blayne. 0.58 m/s JOAN Mean Blayne. 1.60 cm2 LVOT Peak Grad 3.0 mmHg JOAN Mean Blayne. Index 1.21 cm2/m2 LVOT Mean Grad 1.6 mmHg LVOT VTI 0.180 m LVOT Diam s 1.65 cm AoV Vmax 1.17 m/s Velocity Ratio 0.74 AoV Mean Blayne. 0.81 m/s AoV Peak Grad 5.5 mmHg LVOT SV 40.34 mL AoV Mean Grad 2.9 mmHg AoV VTI 0.224 m AoV Area VTI 1.80 cm2 AoV Area/ BSA (VTI) 1.36 cm/m2 Mitral Valve MV DT 234 (160-240 msec) MV PHT 68 msec MV Area PHT 3.24 cm2 Pulmonary Valve PV Vmax 0.64 (0.5-1.5 m/s) RVOT Peak Gr. 1.74 mmHg PV Peak Grad 1.7 mmHg RVOT Mean Gr. 0.90 mmHg PV Mean Grad 0.8 mmHg RVOT VTI 0.120 m PV VTI 0.137 m RVOT Vmax 0.66 m/s Tricuspid Valve TR Peak Grad 19.5 mmHg TR Vmax 2.21 m/s RA Pressure 3.00 mmHg RVSP (TR) 22.5 mmHg
== END 2019-11-07 08:28 ==
PROVIDERS: PCP Nurse Practitioner Family; Visit Provider General Practice
DX: I47.1 Supraventricular tachycardia (principal); R79.89 Other specified abnormal findings of blood chemistry
CPT/HCPCS: 93306

== ENCOUNTER 2019-11-23 00:21 | Outpatient (CLI) | payer OTHER, SELFPAY ==
--- NOTE | 2019-11-23 06:30 | DI.NM_ITS ---
APPROVED REPORT Exam: Exercise Treadmill Patient Location: Out-Patient Room/Bed: Stress Nurse: Tierney Onofre RN BMI: 15.91 Indications: Patient reports episodes of intermittent ???palpitations??? for the past [address]es she can feel her heart ???flip??? and palpitate then flip again and then palpitations stop. She denies ever having any other symptoms with these episodes and episodes are not related with any parti cular activity. Patient was admitted to the ED 2 weeks ago for 24 hour observation after presenting w ith SVT with heart rates in the 200???s and elevated troponin. Patient denied any other symptoms. Medical History Medical History: Childhood asthma has resolved, does not take any maintenance or rescue inhalers. Cardiac Medications: Aspirin. Allergies: No known drug allergies Cardiac Risk Factors: FHX of CAD, Hyperlipidemia, Asthma Previous Cardiac Procedures: None Pretest Chest Pain Characteristics: None Exercise History: Physically active Physical Disabilities: None Lung Sounds: Clear to auscultation Heart Sounds: Regular Stress Test Details Test: Exercise stress testing was performed using a Raimundo protocol. Nuclear Acquisition: Rest Tc-99m/Stress Tc-99m 1 day Rest Isotope: Tc-99m Sestamibi. Dose: 10.5 Date: 11/23/2019 Injection Time: 0845 Stress Isotope: Tc-99m Sestamibi. Dose: 31.0 Date: 11/23/2019 Injection Time: 1135 HR Resting HR Supine: 60 bpm Max Heart Rate (APMHR): 153 bpm Resting HR Standin bpm Target HR (85% APMHR): 130 bpm Max HR Achieved: 138 bpm % of APMHR: 90 HR response to stress: Normal HR response to stress BP Resting BP Supine: 118/64 mmHg Resting BP Standin/68 mmHg Max BP: 152/58 mmHg BP response to stress: Normal blood pressure response to stress. ECG Resting ECG: Sinus Rhythm Ectopy: Occasional PAC's Stress ECG: Sinus Tachycardia ST Change: Normal Arrhythmia: None Recovery ECG: Sinus Rhythm Recovery ST Change: Normal Recovery Arrhythmia: None Clinical Reason for Termination: Fatigue Stress Symptoms: None Exercise duration: 10 min46 sec Highest Stage Reached: Stage 3: 3.4 mph at 14% grade. Exercise capacity: 13.07 METs Functional Capacity: Above average capacity Stress ECG Conclusion 1. Patient exercised for 11 minutes (13 METS. 2. Patient no symptoms suggestive of ischemia. 3. There was no evidence of ischemia on the ECG portion of the exam. Stress Test Summary STAGE Time (mins) Speed (mph) Grade (%) HR BP SYMPTOMS METS Supine 60 118/64 Standing 72 114/68 1 3 1.7 10 103 124/62 4.6 2 6 2.5 12 114 138/60 7 1 min recovery 138 152/58 3 min recovery 98 150/60 6 min recovery 85 130/66 MPI Conclusion Ejection fraction was 72% with stress. There were no wall motion abnormalities. There is no evidence of ischemia on imaging portion of this exam. This represents a normal SPECT stress test. Radiologist Interpretation Radiologist Interpretation by: Wayne Negro MD Interpretation Date/Time: 11/23/2019 16:18:56
== END 2019-11-23 00:41 ==
PROVIDERS: PCP Nurse Practitioner Family; Visit Provider Internal Medicine Cardiovascular Disease
DX: R79.89 Other specified abnormal findings of blood chemistry (principal); Z82.49 Family history of ischemic heart disease and other diseases of the circulatory system; E78.5 Hyperlipidemia, unspecified
CPT/HCPCS: 78452; 93017

== ENCOUNTER 2020-02-01 10:22 | Outpatient (CLI) | payer OTHER, SELFPAY ==
--- NOTE | 2020-02-01 10:15 | DI.RAD_ITS ---
EXAM: XR HIP RT COMPLETE AP PELVIS INDICATION: eval R hip pain. COMPARISON: No exams were available for comparison TECHNIQUE: 2D digital imaging was performed. FINDINGS: There is severe narrowing of the right superior hip joint space, with a [id number] appearance. The re is subchondral cysts on both sides of the joint and prominent periarticular spurring. There is so me flattening of the femoral head and mild deformity of the adjacent acetabulum. There is mild super olateral subluxation. The left hip joint space is well maintained. There are spurs from the margin of the left femoral he ad. There is mild acetabular spurring. There are mild degenerative changes of the SI joints. There is severe degenerative changes of the lower lumbar spine. Incidental soft tissue calcification is s een beneath the level of the left lesser trochanter. IMPRESSION: Severe degenerative changes of the right hip. DATA REPOSITORY: RADIATION DOSE DELIVERED:
== END 2020-02-01 10:42 ==
PROVIDERS: PCP Nurse Practitioner Family; Referring Provider Nurse Practitioner Family; Visit Provider Student in an Organized Health Care Education/Training Program
DX: M16.11 Unilateral primary osteoarthritis, right hip (principal); M47.816 Spondylosis without myelopathy or radiculopathy, lumbar region; M85.68 Other cyst of bone, other site
CPT/HCPCS: 73502

== ENCOUNTER 2020-02-02 08:01 | Outpatient (CLI) | payer OTHER, SELFPAY | END 2020-02-02 08:21 | PROVIDERS: PCP Nurse Practitioner Family; Visit Provider Student in an Organized Health Care Education/Training Program | DX: R69 Illness, unspecified (principal) ==

== ENCOUNTER 2020-02-02 09:57 | Outpatient (CLI) | payer OTHER, SELFPAY ==
[2020-02-02 10:43] LABS: HCT 38.6 % (36.0-46.0); HGB 12.7 g/dL (11.2-15.7); MCH 30.2 pg (27.0-33.0); MCHC 32.9 % (32.0-36.0); MCV 91.7 fL (80-95); MPV 9.1 fL (8.0-11.0); Platelet Count 324 10^3/uL (130-400); RBC 4.21 10^6/uL (3.93-5.22); RDW 13.1 % (11.7-14.6); RDW-SD 44.1 fL; WBC 7.16 10^3/uL (4.4-10.8)
[2020-02-02 11:10] LABS: BUN 14 mg/dL (7-18); CREATININE 0.77 mg/dL (0.55-1.02); Calcium 9.3 mg/dL (8.5-10.1); Chloride 105 mmol/L (98-107); Glucose 91 mg/dL (74-106); Potassium 4.3 mmol/L (3.5-5.1); Sodium 140 mmol/L (136-145)
[2020-02-03 12:44] LABS: COVID-19 RT-PCR Result NEGATIVE (Negative)
== END 2020-02-02 10:17 ==
PROVIDERS: PCP Nurse Practitioner Family; Visit Provider Student in an Organized Health Care Education/Training Program
DX: Z11.59 Encounter for screening for other viral diseases (principal); M25.551 Pain in right hip; M16.11 Unilateral primary osteoarthritis, right hip; Z01.818 Encounter for other preprocedural examination; Z01.812 Encounter for preprocedural laboratory examination
CPT/HCPCS: 36415; 80048; 85027; 86850; 86900; 86901; U0003

== ENCOUNTER 2020-02-06 05:58 | Observation (INO) | payer OTHER, SELFPAY ==
[2020-02-06] VITALS (8 sets, daily range): BP systolic 88–117; BP diastolic 53–67; PULSE 60–73; RESP 16–20; TEMP 35.2–36.6; O2SAT 99–100
[2020-02-06] MEDS: Celecoxib 200 MG CAP 400 MG PO (06:46)
[2020-02-06] MEDS: Acetaminophen 500 MG TAB 1000 MG PO ×2 (06:46→11:28)
[2020-02-06] MEDS: Lactated Ringers 1,000 ML 80 ML IV ×2 (06:55→11:29)
[2020-02-06] MEDS: ceFAZolin 2 GM/50 ML BAG IVPB (07:32)
--- NOTE | 2020-02-06 08:44 | DI.RAD_ITS ---
EXAM: XR HIP RT IN OR CLINICAL HISTORY: Osteoarthritis of right hip TECHNIQUE: 2D and realtime digital imaging was performed. COMPARISON: No exams were available for comparison FINDINGS: C-arm fluoroscopy was utilized by Dr. Sauceda during placement of right hip prosthesis. Hard copy s how femoral and acetabular components of the hip prosthesis in good position. Fluoro time, 42 seconds IMPRESSION: RADIATION DOSE DELIVERED: Total DLP
[2020-02-06] MEDS: Bupivacaine 0.25% Pres-Free 30 ML VIAL (08:47)
[2020-02-06] MEDS: Ketorolac 30 MG/ML VIAL (08:47)
--- NOTE | 2020-02-06 09:02 | ROE_ITS ---
Date of service: 02/06/20 Time of Service: 09:02 Operative Note Operative Note DATE OF PROCEDURE: 02/06/20 PRE-OP DIAGNOSIS: Right Hip Osteoarthritis POST-OP DIAGNOSIS: same PROCEDURE: Right Anterior Total Hip Arthroplasty SURGEON: Justice Sauceda WELDER PRODUCTION LINE GAS: Lani Gates ANESTHESIA: spinal ESTIMATED BLOOD LOSS: 100 PATHOLOGY: none sent TOURNIQUET TIME: 0 COMPLICATIONS: None Patient was transported to: PACU Patient's condition: stable Implants: 1. Depuy Durango Acetabular Component, 48mm 2. Depuy Acetabular Liner, [id number] 3. Depuy Corail Standard Collared Femoral Stem, Size 10 4. Depuy Altrx Ceramic Femoral Head, Size 32+1mm Indications: I have seen Charleen in clinic for symptoms of hip arthritis, confirmed with radiographic findings. She was having significant limitations in daily function with notable deformity of the femoral head and desired better function and less pain. I discussed the technical details of a hip replacement. I explained the risks of the procedure to include, but not limited to, bleeding, infection, pain, stiffness, fracture, damage to nerves and vessels, damage to muscles and tendons, loosening, instability, leg length inequality, need for repeat procedure, blood clot and cardiopulmonary demise. Despite these risks, Charleen elected to proceed. Findings: There was significant signs of arthritis throughout the hip. There was lateral acetabular osteophytes and deformity of the femoral head. Procedure Description: Charleen was greeted in the preoperative holding area where the correct side was identified and marked. The consent was reviewed with the patient and signed. The history and physical was updated. All questions were answered. She was taken back to the operating room. A spinal anesthestic was then administered. The feet were wrapped with cast padding and Coban and then placed into the boot liners and then into the boots. Care was taken to protect the skin and make sure the heels were fully down and the boots were stable. The patient was then positioned onto the HANA table. Both legs were held in a neutral position. SCDs were applied. The patient was then slid down onto a peroneal post. A preoperative AP pelvis was obtained to serve as a reference for determining leg lengths. Prophylactic antibiotics in the form of Cefazolin were administered. 1g of Tranxemic Acid was given intravenously with in 30 minutes of incision. The right leg was then prepped with Chloraprep and draped in a standard fashion. A second prep with Chloraprep was performed prior to placement of a shower-curtain type drape with Iodine impregnated skin protection. A timeout to confirm correct identity, side and site, procedure, allergies, anesthesia, and medical concerns was performed. An obliquely oriented incision was made starting lateral to the ASIS and running distal over the Tensor Fascia Trudy (TFL) muscle belly toward the fibular head, approximately 10cm. The skin and soft tissue was dissected sharply, through Adilson?s fascia, and to the fascia of the TFL. With the fascia and superior border of the IT band identified, the fascia was incised with a new knife just above any perforators from the IT band. The TFL muscle belly was bluntly dissected away from the fascia and moved laterally. The fat between TFL and rectus was identified to ensure the dissection was not within the TFL. Blunt dissection created space between abductors and the capsule and retractor was placed over the lateral femoral neck. The fibers of the rectus femoris tendon were identified and these were freed from the anterior capsule. A second cobra retractor was placed around the medial femoral neck. The TFL was further retracted laterally to show the deep fascia. Careful dissection through this layer identified three main crossing vessels of the lateral femoral circumflex. These were cauterized in multiple locations and then cut without any noticeable bleeding. The TFL was further released bluntly from the deep fascia to expose anterior hip capsule and fat The Lester orthopaedic retractor was then placed beneath the TFL and against sartorius and medial soft tissues to protect and retract the soft tissues. A T-capsulotomy was then performed starting at the superior lateral acetabulum and moving distally to the intertrochanteric ridge. These capsular flaps were tagged with a No. 1 Ethibond and elevated from within. The capsular flaps were released to the shoulder of the lateral neck and to the lesser trochanter to give excellent visualization of the proximal femur. A neck osteotomy was performed using an oscillating saw based on preoperative templates. This cut started in the shoulder and of the lateral neck and exited medially. The saw was at all times directed medially to avoid injury to the greater trochanter. 6cm of traction was applied to the leg and the osteotomy opened. The femoral head was removed with a corkscrew, making sure to protect the TFL on its exit. Traction was released after head removal. This was measured on the back table to determing the starting reamer size. Portions of the rectus obscuring visualization were minimally elevated off the superior acetabulum. An anterior retractor was placed over the anterior wall between capsule and labrum and attached to the Gripper retraction system. A posterior retractor was placed similarly. This provided excellent visualization. The contents of the cotyloid fossa were removed with electrocautery and the labrum was removed with a knife. There was a notable floor osteophyte. There was significant chondromalacia of the superior acetabulum. Acetabular reaming began with a 44mm reamer. This first reaming was directed anterior to posterior and medial to get down to the true floor. This was inspected and reamed until the true floor was reached. The anterior retractor was then released and entry and exit was provided by traction on the capsular flaps. I then reamed sequentially up to a 47mm reamer where good fit was obtained. The larger reamers were oriented based on anatomical reference of the anterior and lateral morris to ensure proper abduction and anteversion. Positioning and size was confirmed with the fluoroscopy. A 48mm Depuy Durango acetabular component was selected. The deep tissues were irrigated. The acetabular component was then impacted in a position of about 40-45 degrees of abduction and 15-20 degrees of anteversion, using the patient?s anatomy as the ultimate landmark. Fluoroscopy was used to confirm this. There was excellent gas plant dispatcher of the acetabular component and the inserting handle was removed. The acetabular liner, Depuy [id number] polyethylene liner, was inserted and lined up with the tines of the acetabular component. There was no soft tissue inte rposition. The liner was then impacted into position and confirmed to be well- seated. A portion of the jen-articular cocktail was then injected around the acetabulum into the capsule and periosteum. This cocktail consisted of 50cc of 0.25% Bupivicaine and 20cc of Exparel, expanded to a total of 120cc. Traction was released from the femur. The leg was rotated to 120 degrees. Any remaining medial capsule was released until the lesser trochanter was easily palpable. A Guzman retractor was placed medially. The lateral capsule was further released into the shoulder to allow access to the greater trochanter. A Guzman retractor was placed over the greater trochanter which allowed the trochanter to flip in front of the capsule for excellent exposure. The leg was brought down into maximal extension and 20 degrees of adduction while ensuring there was no impingement on the acetabulum. Any remnant capsule within the trochanter was released. Piriformis and obturator externis were identified and protected. There was excellent access to the proximal femur. The lateral neck remnant was removed with a rongeur. A blunt canal probe was used to identify the canal and trajectory for later broaching. A box osteotome initiated the broach course. A small curved rasp and a curved curette were used to work laterally. Broaching then began with a size 8 Corail broach. This was inserted manually around the trochanter and into the canal before mallet blows. The broach was seated to a few millimeters below the cut level based on the neck cut and the preoperative template. Sequential broaching was continued with the Airstone pneumatic broaching device until a tight fit was obtained with good rotational control of the femur. A trial standard neck was inserted along with a +1 trial head. The leg was brought out of extension and adduction and then reduced with traction and internal rotation. The leg was stable anteriorly in a position of 30 degrees of extension and 90 degrees of external rotation. Fluoroscopy was used to ensure there was no fracture and the stem was seated well. Leg lengths were checked with an AP pelvis and pelvic reference points. JointMicrotune akash igation system was used to confirm appropriate positioning and leg length and offset. Once content with the desired offset and leg lengths, the leg was brought back into extension, external rotation and adduction. The periosteum and surrounding tissue was injected with remaining portion of the jen-articular cocktail. The proximal femur was irrigated as well as the deep tissues. The Depuy Corail standard collared stem, size 10, was then manually inserted into the proximal femur making sure to control rotation. It was then malleted into position with light blows, giving breaks to allow bone expansion and decrease risk of fracture. The selected Depuy Altrx Ceramic Head, size 32+1mm, was then placed onto the clean and dry trunnion and secured with impaction onto the tapered fit. The leg was brought back out of extension and adduction and reduced with traction and internal rotation. Stability was confirmed with no shuck at 90 degrees of external rotation and 30 degrees of extension. No impingement through range of motion arc. Final x-ray images were obtained with fluoroscopy to confirm adequate positioning and no intraoperative fracture. The deep tissues were thoroughly irrigated with Irrisept chlorhexadine solution. The second dose of TXA 1g was administered intravenously.The capsule was then reapproximated with the previously placed Ethibond sutures. The TFL fascia was finally closed with a No. 2 Stratafix, barbed suture. Deep tissues were then reapproximated with 0 Vicryl and a running 2-0 Vicryl. The skin was closed with a running 4-0 Monocryl in a subcuticular fashion. This was reinforced with skin glue. A Mepilex silver dressing was applied. At the end of the case, all counts were correct. Charleen was transferred to the hospital bed without difficulty and suffering no apparent complication. Charleen has a good prognosis. Physical therapy will start today and without restrictions, weight-bearing as tolerated. Aspirin 81mg BID will be used for DVT prophylaxis.
--- NOTE | 2020-02-06 09:34 | DSE_ITS ---
Date of service: 02/06/20 DS: Diagnosis Discharge Diagnosis (1) Osteoarthritis of right hip: Status: Acute Discharge Plan Disposition Patient Disposition: HOME Condition: Good Discharge Details Reason For Visit: RIGHT HIP DJD Admit Date/Time: 02/06/20 05:58 Admit Provider: Justice Sauceda Attending Provider: Justice Sauceda Primary Care Provider: Mariajose Cerda Hospital Course Hospital Course: Patient was admitted to the medical/surgical floor following the procedure. The surgery was tolerated well without any notable medical, surgical, or anesthetic complications. Mobilization began postoperatively. She was voiding spontaneously. Vitals were stable. Physical therapy worked with the patient and was cleared for discharge home. No acute medical issues. Pain was controlled on oral regimen. Home Meds and New Rx's Prescriptions: New celecoxib 200 mg capsule 200 mg PO BID PRN (Reason: pain) Qty: 60 RF: 1 hydrocodone-acetaminophen 5-325 mg tablet 1 tab PO Q4H PRN (Reason: pain) Qty: 12 RF: 0 acetaminophen 500 mg tablet 500 mg PO Q6H PRN PRN (Reason: pain) Qty: 40 RF: 3 pantoprazole 40 mg tablet,delayed release (DR/EC) 40 mg PO DAILY Qty: 30 RF: 0 docusate sodium [Colace] 100 mg capsule 100 mg PO BID PRNQty: 10 RF: 0 Changed aspirin 81 mg tablet,delayed release (DR/EC) 81 mg PO BID Qty: 60 RF: 0 Discontinued metoprolol succinate 25 mg tablet extended release 24 hr 25 mg PO HS RF: 0 Discharge Instructions Additional Instructions: Dr. Sauceda's Total Hip Discharge Instructions Activity: The most important activity is to walk. You should try to take short walks a few times a day. You have no restrictions on movement or positioning, but do not try to force what you do. You will find some stiffness and weakness with hip flexion (lifting your knee). Do not try to strengthen this too early, continue to practice walking and stairs and this will come. - Outpatient physical therapy can be helpful to help return you to a normal gait and improve your flexibility and strength. This can start around 2 weeks. For most patients, it?s not necessary. Usually this is determined at the time of discharge or at the first post-operative visit. - You should wear the ROXANNA hose on both legs for 2 weeks. You may remove those at night. These prevent blood pooling and swelling. Dressing: Keep the surgical dressing in place for at least one week, although it may stay in place untill follow-up. It may get wet after 3 days but avoid soaking the dressing. If it gets wet, just lightly pat dry. Most people prefer to cover the dressing with some ClingWrap, Saran Wrap, to keep it dry. After the first week it may be removed if desired and then replaced with light gauze and tape or nothing. It is important to always keep some gauze or the dressing between skin folds, especially when you are sitting, so the incision is not folded over on itself at the belly fold. Medications: - You should take Tylenol and an anti-inflammatory Celebrex as your primary pain control medications - You have been prescribed a stronger pain medication Hydrocodone for breakthrough pain, take as needed as prescribed. - You have also been prescribed a stomach acid reduction agent Pantoprozole to help reduce stomach acid and reflux. - You will be taking Aspirin 81mg twice a day for DVT prevention unless instructed otherwise. - If you have constipation you should take Colace or Miralax (both [id number]). It takes most people 3-4 days to have a bowel movement. Follow-up: 2 weeks. If you have any acute concerns or questions, please do not hesitate to contact the office at [phone]. You may contact Dr. Sauceda with any questions after hours through the hospital at [phone] or on his cell phone at [phone]. Referrals: Justice Sauceda MD [ [facility] STAFF PHYSICIAN] - Activity:: Activity as Tolerated Equipment/Supplies:: Walker Diet:: As Tolerated Discharge Orders Discharge Orders: Discharge Order (Routine); Ordered 02/06/20 Ordered By: Justice Sauceda DS: Summary Status at Discharge Functional status at discharge: uses cane/walker Overall status at discharge: patient is progressing back to baseline Mental Status: mental status grossly normal Speech and Movement: speech and movement normal Mood: congruent mood Affect: normal affect Exam Psych Mental Status: mental status grossly normal Speech and Movement: speech and movement normal Mood: congruent mood Affect: normal affect DS: Data Vitals/I&O Vitals and I&O: Vital Signs Temperature 36.4 C L 02/06/20 09:19 Pulse 73 02/06/20 09:19 Pulse Rhythm Regular 02/06/20 06:39 Respiratory Rate 19 02/06/20 09:19 Respiratory Effort 02/06/20 06:39 Respiratory Depth Normal 02/06/20 06:39 Respiratory Pattern Normal 02/06/20 06:39 Blood Pressure 101/55 L 02/06/20 09:19 Pulse Oximetry 100 02/06/20 09:19 Respiratory End-tidal CO2 36 02/06/20 09:19 Oxygen Delivery Method Room Air 02/06/20 09:19 Oxygen Flow Rate 0 02/06/20 06:39 Pain Level 0 02/06/20 09:19 Intake & Output 02/05/20 02/05/20 02/06/20 11:59 23:59 11:59 Intake Total 770 / 770 Output Total 100 / 100 Balance 670 / 670 Weight 38.7 kg Intake: IV 770 / 770 Output: Estimated Blood Loss 100 / 100 Other: Emesis Description None PFSH Medical History Asthma Knotting of intestine, bowel or colon Surgical History History of appendectomy History of tonsillectomy Hx of colonoscopy Social History Smoking/Tobacco Use Status: Never Smoking risk assessment performed?: Yes Alcohol Intake: never Drug use: Never Substance use type: does not use Do you feel safe at home: Yes Do you feel safe in your relationship?: Yes
[2020-02-06] MEDS: ceFAZolin 1 GM/50 ML BAG IVPB (11:29)
--- NOTE | 2020-02-06 12:55 | PT.INIE ---
Date of service: 02/06/20 Time of Service: 12:55 PT Notes Visit Reasons: RIGHT HIP DJD Physical Therapy Inpatient Initial Evaluation Date: 02/06/2020 Referring Doctor: Justice Sauceda MD PT Orders: PT CONSULT: Status post Ortho surgery. Status post right YRN. Precautions: Fall. Standard. WBAT on the right LE Patient Profile/Admitting Diagnosis: Charleen is a 69-year-old female with primary unilateral osteoarthritis of the right hip and is status post right total hip arthroplasty on postoperative day 0. PMHX: Medical History (Updated 02/01/20 @ 16:34 by Justice Sauceda MD) Asthma Knotting of intestine, bowel or colon Surgical History History of appendectomy History of tonsillectomy Hx of colonoscopy Social History/Home Situation: Lives with in a private home with 2 steps to enter and rails on both sides. 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 Independent with all aspects of ADLs prior to surgery. Reported no falls in the past 12 months. Equipment Owned/DME: Front wheeled walker Subjective: Agreeable to PT consult. Reported mild lightheadedness upon sitting up from the edge of bed initially. Denies headache, chest pain, and nausea throughout session. Reported no increase in pain in the right hip with weightbearing. Objective: General Observation: Bilateral ROXANNA is on. Mepilex Ag over surgical incision. IV in the right UE. Mental Status: Alert and oriented x4 Pain: 1/10 in the right hip ROM: Right Upper Extremity: Shoulder Flexion WFL. Shoulder abduction WFL. Elbow flexion WFL. Wrist flexion WFL. Opening and closing of hand WFL. Left Upper Extremity: Shoulder Flexion WFL. Shoulder abduction WFL. Elbow flexion WFL. Wrist flexion WFL. Opening and closing of hand WFL. Right Lower Extremity: Hip flexion WFL. Hip abduction WFL. Knee flexion WFL. Ankle dorsiflexion WFL. Ankle plantarflexion WFL. Left Lower Extremity: Hip flexion WFL. Hip abduction WFL. Knee flexion WFL. Ankle dorsiflexion WFL. Ankle plantarflexion WFL. Strength: Right Upper Extremity: Shoulder flexors 5/5. Shoulder abductors 5/5. Elbow flexors 5/5. Elbow extensors 5/5. Oracle Database Architect strong. Left Upper Extremity: Shoulder flexors 5/5. Shoulder abductors 5/5. Elbow flexors 5/5. Elbow extensors 5/5. Oracle Database Architect strong. Right Lower Extremity: Hip flexors 4/5. Hip abductors 4/5. Knee flexors 4/5. Knee extensors 4/5. Ankle dorsiflexors 5/5. Ankle plantarflexors 5/5. Left Lower Extremity:Hip flexors 5/5. Hip abductors 5/5. Knee flexors 5/5. Knee extensors 5/5. Ankle dorsiflexors 5/5. Ankle plantarflexors 5/5. Sensation: Intact as to pain and pressure on bilateral lower extremities. Bed Mobility/Transfers: Supine to sit standby assist standby assist Sit to supine standby assist Sit to stand contact-guard assist Stand to sit contact-guard assist Bed to chair contact-guard assist Chair to bed contact-guard assist Gait: Tolerated level surface ambulation of 200 feet x 2 using the front wheeled walker with step through gait pattern and WBAT on the right LE. Antalgic gait seen towards the end of activity with report of 2/10 in the right hip that subsided with rest. Up-and-down six 4 inch steps and four 6 inch steps while holding onto bilateral rails with standby assist using step to gait pattern. Balance: Static Sitting: Normal Dynamic Sitting: Normal Static Standing: Fair Dynamic Standing: Fair Special Tests: Mobility Limitations Standardized Measure [facility] AM-PAC 6 clicks Basic Mobility Inpatient Short Form: Raw Score: 23 CMS Score: 11% deficit Informed Consent/Education: Patient instructed in purpose of PT consult and plan of care. Assessment: Charleen demonstrates the need for the use of a front wheeled walker for all mobility ADL performance, decreased activity tolerance, balance impairment and increased risk for falls due to postoperative status. Charleen is a 69-year-old female with primary unilateral osteoarthritis of the right hip and is status post right total hip arthroplasty on postoperative day 0. Patient presents with clinical signs and symptoms consistent with current/admitting diagnoses that have resulted to mobility limitations, gait instability, generalized weakness, and impairment of motor control as demonstrated by the following impairment level findings: 1. Decreased strength to right hip major muscle groups 2. Impaired standing balance 3. Impaired activity tolerance Impairments are contributing to the following functional limitations: 1. Inability to safely ambulate without assistive device 2. Increase completion time for mobility ADL performance 3. Increased fall risk 4. Inability to negotiate steps alone safely Patient is assessed as a 42576 moderate complexity based on the following: History: 69 [id number] with impairment level findings, functional limitations, and past medical history as indicated above Examination: Demonstrable impairment in strength, balance, and mobility level with underlying impairments and functional limitations as documented above Presentation:Evolving Decision Makin moderate complexity Goals: N/A. PT evaluation and 1 treatment session only for education and training with the use of the front wheeled walker for all mobility ADL performance. Plan of Care/Treatment Plan: N/A. PT evaluation and 1 treatment session only for education and training with the use of the front wheeled walker for all mobility ADL performance. DISCHARGE RECOMMENDATIONS: Home when medically cleared by orthopedic surgeon. Order outpatient PT services in order to facilitate return to independent premorbid level and to vocational activities. TREATMENT CODE/TIME: 37518 x 20 minutes, 15083 x 25 minutes beginning at 12:55 PM. Thank you for the opportunity to participate in the care of this patient. Fernanda Sanchez PT, DPT, CLT [facility] [place], [place]
--- NOTE | 2020-02-06 16:59 | PT.INIE ---
Date of service: 02/06/20 Time of Service: 09:49 PT Notes Visit Reasons: RIGHT HIP DJD Physical Therapy Inpatient Initial Evaluation Date: 02/06/2020 Referring Doctor: Kamryn Redding NP PT Orders: PT CONSULT: Eval/treat Precautions: Fall. Standard. Activity as tolerated. Patient Profile/Admitting Diagnosis: [] PMHX: [] Social History/Home Situation: [] Equipment Owned/DME: [] Subjective: [] Objective: [] General Observation: [] Mental Status: [] Pain: [] Vital Signs: [] ROM: Right Upper Extremity: Shoulder Flexion WFL. Shoulder abduction WFL. Elbow flexion WFL. Wrist flexion WFL. Opening and closing of hand WFL. Left Upper Extremity: Shoulder Flexion WFL. Shoulder abduction WFL. Elbow flexion WFL. Wrist flexion WFL. Opening and closing of hand WFL. Right Lower Extremity: Hip flexion WFL. Hip abduction WFL. Knee flexion WFL. Ankle dorsiflexion WFL. Ankle plantarflexion WFL. Left Lower Extremity: Hip flexion WFL. Hip abduction WFL. Knee flexion WFL. Ankle dorsiflexion WFL. Ankle plantarflexion WFL. Strength: Right Upper Extremity: Shoulder flexors 5/5. Shoulder abductors 5/5. Elbow flexors 5/5. Elbow extensors 5/5. Adjunct Writing Instructor strong. Left Upper Extremity: Shoulder flexors 5/5. Shoulder abductors 5/5. Elbow flexors 5/5. Elbow extensors 5/5. Adjunct Writing Instructor strong. Right Lower Extremity: Hip flexors 5/5. Hip abductors 5/5. Knee flexors 5/5. Knee extensors 5/5. Ankle dorsiflexors 5/5. Ankle plantarflexors 5/5. Left Lower Extremity:Hip flexors 5/5. Hip abductors 5/5. Knee flexors 5/5. Knee extensors 5/5. Ankle dorsiflexors 5/5. Ankle plantarflexors 5/5. Sensation: Intact as to pain and pressure on bilateral lower extremities. Bed Mobility/Transfers: Rolling Supine to sit Sit to supine Sit to stand Stand to sit Bed to chair Chair to bed Gait: Balance: [] Static Sitting: [] Dynamic Sitting: [] Static Standing: [] Dynamic Standing: [] Special Tests: Mobility Limitations Standardized Measure [facility]-PAC 6 clicks Basic Mobility Inpatient Short Form: Raw Score: [] CMS Score: [] Informed Consent/Education: Patient instructed in purpose of PT consult and plan of care. Assessment: Patient presents with clinical signs and symptoms consistent with current/admitting diagnoses that have resulted to mobility limitations, gait instability, generalized weakness, and impairment of motor control as demonstrated by the following impairment level findings: 1. Decreased strength to [] []major muscle groups 2. Impaired sitting/standing balance 3. Impaired activity tolerance 4. Limitation of joint range of motion in [] [] Impairments are contributing to the following functional limitations: 1. Dependent bed mobility skills 2. Increased dependence with transfers 3. Inability to safely ambulate without assistive device and physical assistance 4. Increase completion time for mobility ADL performance 5. Increased fall risk 6. Inability to negotiate steps alone safely Patient is assessed as a [] complexity based on the following: History: []-year-old [] with impairment level findings, functional limitations, and past medical history as indicated above Examination: Demonstrable impairment in strength, balance, and mobility level with underlying impairments and functional limitations as documented above Presentation:Evolving Decision Making: [] complexity Goals: Goals X1 week 1. Supine-Sit independent 2. Sit-Supine independent 3. Sit-Stand independent 4. Stand-Sit independent 5. Bed-Chair independent 6. Chair-Bed independent 7. Independent gait on level surface with use of least restrictive device for at least 300 feet without report of pain nor dyspnea 8. Independent stair negotiation while holding onto bilateral rails for at least 10 steps without report of pain nor dyspnea 9. Independent with home exercise program 10. Good static and dynamic standing balance/tolerance Plan of Care/Treatment Plan: 1-2x/day, 7 days/week x 1 week. Plan of care has been reviewed with the [employer] providing the service under Physical Therapy direction. Initiate Physical Therapy intervention for strengthening, bed mobility, transfers, gait, stairs, balance training, use of assistive device. DISCHARGE RECOMMENDATIONS: [] TREATMENT CODE/TIME: [] Thank you for the opportunity to participate in the care of this patient. Fernanda Sanchez PT, DPT, CLT [facility] [place], [place]
== END 2020-02-06 16:56 | disposition home or self-care (01) ==
LOC: PDS 09:54 → MS 09:56
PROVIDERS: Admitting Provider Student in an Organized Health Care Education/Training Program; PCP Nurse Practitioner Family; Visit Provider Student in an Organized Health Care Education/Training Program
PROC: (CPT 27130; principal; 2020-02-06 07:30)
DX: M16.11 Unilateral primary osteoarthritis, right hip (principal); J45.909 Unspecified asthma, uncomplicated
CPT/HCPCS: 27130; 97162; 97530; NC; 73501; G0378; J0690; J1885; J2001; J3010

== ENCOUNTER 2020-02-23 11:14 | Outpatient (CLI) | payer OTHER, SELFPAY ==
--- NOTE | 2020-02-23 10:45 | DI.RAD_ITS ---
EXAM: XR HIP RT COMPLETE AP PELVIS CLINICAL HISTORY: 1st post op R YRN. TECHNIQUE: 2D digital imaging was performed. COMPARISON: CR XR HIP RT COMPLETE AP PELVIS from 02/01/2020 FINDINGS: BONES: There are stable post operative changes present. No fracture or dislocation. JOINTS: The joint spaces are well maintained. No joint effusion is present. Mild degenerative change s are seen in the left hip. SOFT TISSUE: Normal. IMPRESSION: Stable postoperative changes. DATA REPOSITORY: RADIATION DOSE DELIVERED:
== END 2020-02-23 11:34 ==
PROVIDERS: PCP Nurse Practitioner Family; Referring Provider Nurse Practitioner Family; Visit Provider Student in an Organized Health Care Education/Training Program
DX: Z96.641 Presence of right artificial hip joint (principal)
CPT/HCPCS: 73502

== ENCOUNTER 2021-02-14 10:12 | Outpatient (CLI) | payer MEDICARE, BC, SELFPAY ==
--- NOTE | 2021-02-14 09:30 | DI.RAD_ITS ---
Exam(s) XR HIP RT AP LAT ONLY EXAM: XR HIP RT AP LAT ONLY INDICATION: ANNUAL R YRN F/U. COMPARISON: CR XR HIP RT COMPLETE AP PELVIS from 02/23/2020 TECHNIQUE: 2D digital imaging was performed. Two views. FINDINGS: There has been no change in the alignment of the right hip prosthesis or appearance of the surroundin g bone. DATA REPOSITORY: RADIATION DOSE DELIVERED:
== END 2021-02-14 10:13 | disposition home or self-care (01) ==
LOC: DIORS 10:15
PROVIDERS: PCP Nurse Practitioner Family; Referring Provider Nurse Practitioner Family; Visit Provider Student in an Organized Health Care Education/Training Program
DX: Z96.641 Presence of right artificial hip joint (principal); Z47.1 Aftercare following joint replacement surgery
CPT/HCPCS: 99212; 73502

== ENCOUNTER 2021-05-13 00:31 | Outpatient (CLI) | payer MEDICARE, BC, SELFPAY ==
--- NOTE | 2021-05-13 15:17 | DI.MAMMO_ITS ---
Exam(s) MAMMO SCREENING EXAM: MAMMO SCREENING CLINICAL HISTORY: SCREENING, Z12.39 TECHNIQUE: Bilateral full field digital CC and MLO mammographic images were obtained with 3D tomosyn thesis and utilizing computer aided detection (CAD). COMPARISON: Available for comparison. FINDINGS: Masses/Architectural Distortion: None seen. Microcalcifications: No suspicious pleomorphic-type are seen. Skin Thickening/Nipple Retraction: None. IMPRESSION: 1. No significant interval change with no specific features of malignancy noted. 2. Unless there is more urgent need, screening mammography is recommended, as per [employer] guidelines. BI-RADS Category 1 - Negative Breast Density - Category D - Extremely dense Breast density category C or D implies that the patient has dense breast tissue. Dense breast tissue is very common and is not abnormal but dense breast tissue can make it harder to find cancer on a ma mmogram. Also, dense breast tissue may increase their breast cancer risk. This information about the result of the mammogram report was provided to the patient to raise their awareness. Use this report when you speak with the patient about their risks for breast cancer, which includes their family hist ory. At that time, you may recommend for more screening tests (Ultrasound or MRI) as they might be us eful based on their risk. A negative radiographic report should not delay biopsy if a dominant or clinically suspicious mass is present. Up to ten percent of cancers are not identified on mammography. A negative report may reinforce clinical impression. Adenosis and dense breasts may obscure an underlying neoplasm. False positive reports average 6 to 10%. Patient will receive a letter notifying them of these results.
== END 2021-05-13 00:51 ==
PROVIDERS: PCP Nurse Practitioner Family; Visit Provider Nurse Practitioner Family
DX: Z12.31 Encounter for screening mammogram for malignant neoplasm of breast (principal)
CPT/HCPCS: 77063; 77067

== ENCOUNTER 2022-04-28 06:19 | Emergency (ER) | payer MEDICARE, BC, SELFPAY ==
--- NOTE | 2022-04-28 06:15 | RT.EKG_ITS ---
APPROVED REPORT Exam: Resting ECG Reason for Exam: Chest Pain w/ Gen Weakness Patient Location: E HR:74 bpm ECG Measurements Heart Rate [address] 138 P 91 QRSd 85 QRS 104 QT 407 T 75 QTc 454 Conclusion Sinus rhythm...normal P axis, V-rate 60- 99 Probable left atrial enlargement...P >50mS, <-0.10mV V1 Sinus. Normal axis. No STEMI. I have reviewed and interpreted ECG and agree with software generated interpretation.
[2022-04-28 06:23] VITALS: BP 136/57; PULSE 77; RESP 16; TEMP 36.7; O2SAT 99
--- NOTE | 2022-04-28 06:45 | DI.CT_ITS ---
Exam(s) CT RENAL COLIC WO EXAM: CT RENAL COLIC WO CLINICAL HISTORY: L flank pain, r/o stone vs pyelo. TECHNIQUE: Imaging Protocol: Axial computed tomography images with coronal and sagittal reformatted images were created and reviewed CONTRAST MATERIAL: Intravenous: none Oral: None COMPARISON: No exams were available for comparison FINDINGS: VISUALIZED LUNG BASES: c. ABDOMEN: There is no ascites. LIVER: Small 3 millimeter hypodensity in the lateral aspect of the right hepatic lobe difficult to as sess without IV contrast but probably benign intrahepatic cyst or hemangioma. GALLBLADDER/BILIARY: No obvious gallbladder pathology. CBD is not dilated. PANCREAS: No evidence of pancreatic mass nor dilatation of the pancreatic duct. SPLEEN: Spleen is not enlarged. No obvious intrasplenic lesions. ADRENALS: There are no significant adrenal masses. KIDNEYS:Right kidney unremarkable. There is a 3 millimeter calcification in the lower pole region of the left kidney. No hydronephrosis. No hydroureter. No obvious radiopaque calculi in the nondiste nded urinary bladder (which is partially obscured by beam hardening artifact from a right hip prosthe sis). No obvious solid renal masses.. No renal cysts evident. ABDOMINAL AORTA: Abdominal aorta is not enlarged. LYMPH NODES: There is no retroperitoneal nor paraaortic adenopathy. ABDOMINAL WALL: No evidence of significant anterior abdominal wall nor inguinal hernia. Patient appe ars somewhat cachectic with minimal subcutaneous fat. GI: There is no evidence of bowel obstruction, free air, nor abscess. PELVIS: LYMPH NODES: There is no intrapelvic nor inguinal adenopathy. GI: No evidence of appendicitis.No evidence of sigmoid diverticulitis. URINARY BLADDER: No calculi nor obvious masses evident REPRODUCTIVE: Uterus is difficult to visualize among the numerous adjacent unopacified bowel loops. There are no obvious ovarian masses. No free fluid. OSSEOUS: No significant osseous lesions. Right hip prosthesis. Chronic multilevel disc space narrowing. No fractures seen. IMPRESSION: 1. There is a 3 millimeter calculus in the lower pole region of the left kidney. No other renal calc noemi. No hydronephrosis nor hydroureter. 2. No evidence of bowel obstruction, free air, nor abscess. Evaluation of the bowel loops is somewha t difficult in this somewhat cachectic patient due to the numerous bowel loops and lack of intraperit arrieta fat. 3. No ascites evident. RADIATION DOSE DELIVERED: 328.34mGy.cm Total DLP DATA REPOSITORY: All CT scans at this facility are submitted to the National Radiology Data Registry (NRDR) Dose Index Registry (DIR) with the [employer] (ACR). RADIATION OPTIMIZATION: All CT scans at this facility use at least one of these dose optimization te chniques: automated exposure control; mA and/or kV adjustment per patient size (includes targeted exa ms where dose is matched to clinical indication); or iterative reconstruction.
--- NOTE | 2022-04-28 06:54 | ED.GENADUL_ITS ---
Discharge Plan Disposition Patient Disposition: Home Condition: Good Discharge Details Clinical Impression: Colitis, Sacroiliac joint pain Primary Care Provider: Mariajose Cerda ED Provider: Abhijit Gonsales Home Meds and New Rx's Prescriptions: New amoxicillin-pot clavulanate 875-125 mg tablet 1 tab PO BID Qty: 14 0RF lidocaine [Lidoderm] 5 % adhesive patch,medicated 1 patch Topical Q24H Qty: 15 0RF diclofenac sodium [Voltaren Arthritis Pain] 1 % gel 4 g topical QID Qty: 100 0RF Rx Instructions: apply to single knee, ankle, foot; for foot includes sole/toes/top of foot ondansetron 4 mg tablet,disintegrating 4 mg PO Q8H Qty: 14 0RF No Action acetaminophen 500 mg tablet 500 mg PO Q6H PRN PRN (Reason: pain) Qty: 40 3RF Discharge Instructions Instructions: Colitis (ED) Additional Instructions: At this time you have evidence of mild colitis noted on your CAT scan. This requires antibiotic for treatment. Please take the antibiotic Augmentin as directed. Additionally clinically you have what appears to be SI joint irritation. Please apply the Lidoderm patch as directed, apply the Voltaren gel as directed, and take Tylenol as needed for pain. Take the Zofran needed for nausea. All these prescriptions have been sent to your pharmacy on file which is [facility]. If you notice any worsening of your symptoms, or any new symptoms such as vomiting, diarrhea, fever, chills, shortness of breath, chest pain, numbness, weakness, or fainting , please return immediately to the emergency department for reevaluation. Please follow up with your primary care provider as soon as possible for reassessment and reevaluation. As always, it was a pleasure p articipating in your medical care today. Referrals: Mariajose Cerda [Primary Care Provider] - Medical Decision Making <Xochitl Mancilla DO - Last Filed: 04/28/22 07:52> 0630 -- 71-year-old female with a history of asthma and SVT presents for 1 week of nausea, dizziness and left-sided lower back pain. Pain worse this morning. Vitals within normal limits. Patient appears somewhat uncomfortable but nontoxic. Her left-sided lower back and upper buttock is tender to palpation and appears reproducible with movement on the stretcher. She otherwise has no focal deficits and full range of motion in her hips without pain. She has no focal deficits. Differential diagnosis includes sciatica, lumbar strain c onsidering reproducible component. Also consider kidney stone, UTI or pyelonephritis. We will place an IV, bolus IV fluids, screening labs, urinalysis, CT renal colic and give a dose of IV Toradol, IV zofran, PO valium and reassess. 0730 -- labs reviewed. Normal white blood cell count. Normal electrolytes. Urinalysis notes ketones and trace blood but no obvious evidence of infection. 0800 -- Case endorsed to Dr. Gonsales to follow-up on imaging and final disposition. Medical Records Medical records reviewed: Yes I reviewed the patient's medical records. <Abhijit Gonsales, DO - Last Filed: 04/28/22 08:35> 0630 -- 71-year-old female with a history of asthma and SVT presents for 1 week of nausea, dizziness and left-sided lower back pain. Pain worse this morning. Vitals within normal limits. Patient appears somewhat uncomfortable but nontoxic. Her left-sided lower back and upper buttock is tender to palpation and appears reproducible with movement on the stretcher. She otherwise has no focal deficits and full range of motion in her hips without pain. She has no focal deficits. Differential diagnosis includes sciatica, lumbar strain considering reproducible component. Also consider kidney stone, UTI or pyelonephritis. We will place an IV, bolus IV fluids, screening labs, u rinalysis, CT renal colic and give a dose of IV Toradol, IV zofran, PO valium and reassess. 0730 -- labs reviewed. Normal white blood cell count. Normal electrolytes. Urinalysis notes ketones and trace blood but no obvious evidence of infection. 0800 -- Case endorsed to Dr. Gonsales to follow-up on imaging and final disposition. Dr. Gonsales's documentation 8:32 AM Patient was signed out to me by my colleague Dr. Xochitl Mancilla. Please review her HPI, physical exam, assessment and plan. At time of signout the patient was awaiting CT scan results. CT imaging is consistent with left-sided colitis. No urolithiasis, however she does have a nonobstructing kidney stone otherwise. No evidence of infection and urinalysis. Laboratory work-up stable otherwise. On repeat exam patient has minimal reproducible left-sided tenderness, however the majority of her tenderness appears to be over the SI joint itself. Chief clinical diagnosis is SI joint irritation, symptoms inconsistent with fracture based on imaging. We will treat with Augmentin for treatment of colitis. Additionally will recommend Tylenol, Voltaren gel and Lidoderm patch for treatment of the SI joint irritation clinically. No indication for steroid injections at this time. Will recommend close outpatient follow-up for reassessment of pain. Discussed this with the patient and family member at bedside. Discussed outpatient plan. I have extensively reviewed the treatment plan and discharge instructions with the patient and their family. I have addressed all patient concerns at this time. The patient and family was made aware of what symptoms to monitor for that would warrant a return to the emergency department. Discussed the plan with the patient and family, they demonstrate verbal understanding and agreement with our assessment and plan at this time. The documentation in this chart was dictated using [employer] dictation software. Please excuse any dictation errors. FINDINGS: Liver: The liver is normal in size and contour. Gallbladder and bile ducts: The gallbladder is distended with normal wall th ickness and does not demonstrate calcified gallstones. No intra- or extra-hepatic biliary ductal dil atation. Pancreas: The pancreas appears normal. Spleen: The spleen appears normal. Adrenal glands: The adrenals appear normal. Kidneys and ureters: 3 mm calcification in the lower pole of the left kidney likely within the renal parenchyma versus lower pole renal calyx. No hydronephrosis. No perinephric fat stranding. No distal ureteral stones identified. Stomach and bowel: The stomach appears unremarkable. The small bowel loops are not abnormally dilated. The large bowel loops are not abnormally dilated. Circumferential wall thickening in the descending colon (axial series 3, image 243) in the left abdomen with minimal adjacent fat stranding. Questionable fat stranding in the rectosigmoid region. Appendix: No signs of appendicitis. Intraperitoneal space: No ascites or significant fluid collection. Vasculature: The aorta is nonaneurysmal. The IVC appears normal. Lymph nodes: There are no enlarged lymph nodes. Urinary bladder: The bladder is distended and demonstrates no focal contour ab normality Reproductive: Unremarkable as visualized. Bones/joints: Right total hip arthroplasty noted. Multilevel degenerative changes in the spine. Soft tissues: Unremarkable. IMPRESSION: 1. Findings concerning for left-sided colitis. 2. Questionable left-sided nephrolithiasis. No signs of urinary obstruction. COMMENTS: Evaluation of solid organs and vascular structures is limited as no IV contrast was administered. Thank you for allowing us to participate in the care of your patient. Dictated and Authenticated by: Rancho Smith MD 04/28/2022 8:10 AM Eastern Time ([place] & [place]) HPI <Xochitl Ashley Mancilla, - Last Filed: 04/28/22 07:52> General Mode of arrival: ambulatory . Date/Time Provider Initiated Documentation: 04/28/22 06:29 . Limitations to Documentation: no limitations . Information obtained by: patient . HPI Narrative: Patient is a 71-year-old female with a history of asthma and SVT presents for nausea, dizziness and left lower back pain for the past week. She states she was having difficulty finding a comfortable position while in bed this morning. She states the pain was worse while moving around in bed. Patient states she r eceived her COVID booster 1 day prior to onset of symptoms in her left arm. Patient states the following day at 3 AM she awoke with nausea, dizziness and left lower back pain. She describes the pain as constant but worse with movement. She feels her dizziness is consistent with a spinning sensation. She states she vomited once 3 days ago which was bile. She states she had a normal bowel movement this morning. She denies any known fever, chest pain, difficulty breathing, abdominal pain, urinary symptoms, headache, ear pain, sore throat or coughing. She last took ibuprofen last night with some relief and Tylenol last a few days ago with some relief. She denies any known injury. Related Data Home Medications Medication Instructions Recorded Confirmed acetaminophen 500 mg tablet 500 mg PO Q6H PRN PRN pain #40 tabs 02/06/20 04/28/22 amoxicillin 875 mg-potassium 1 tab PO BID #14 tabs 04/28/22 clavulanate 125 mg tablet diclofenac sodium 1 % topical gel 4 g topical QID #100 grams 04/28/22 (Voltaren Arthritis Pain) lidocaine 5 % topical patch 1 patch topical Q24H #15 ea 04/28/22 (Lidoderm) ondansetron 4 mg disintegrating 4 mg PO Q8H #14 tabs 04/28/22 tablet Previous Rx's Medication Instructions Recorded acetaminophen 500 mg tablet 500 mg PO Q6H PRN PRN pain #40 tabs 02/06/20 amoxicillin 875 mg-potassium 1 tab PO BID #14 tabs 04/28/22 clavulanate 125 mg tablet diclofenac sodium 1 % topical gel 4 g topical QID #100 grams 04/28/22 (Voltaren Arthritis Pain) lidocaine 5 % topical patch 1 patch topical Q24H #15 ea 04/28/22 (Lidoderm) ondansetron 4 mg disintegrating 4 mg PO Q8H #14 tabs 04/28/22 tablet Allergies Allergy/AdvReac Type Severity Reaction Status Date / Time No Known Allergies Allergy Unverified 02/14/21 10:00 General Stated Complaint: FlankPain TIM: 3 Review of Systems <Xochitl Mancilla DO - Last Filed: 04/28/22 07:52> All systems reviewed & are unremarkable except as noted in HPI and below Constitutional Constitutional: Reports as per HPI, Denies chills and Denies fever(s) Eyes Eyes: Denies blurry vision ENT Ears, Nose, Mouth, and Throat: Reports dizziness, Denies sore throat and Denies throat swelling Cardiovascular Cardiovascular: Denies chest pain and Denies dyspnea Respiratory Respiratory: Denies cough and Denies dyspnea Gastrointestinal Gastrointestinal: Denies abdominal pain, Denies diarrhea, Reports nausea and Denies vomiting Genitourinary Genitourinary: Denies hematuria and Denies dysuria Musculoskeletal Musculoskeletal: Reports back pain and Denies numbness Integumentary/Breasts Skin/Breast: Denies lesions and Denies rash Neurologic Neurologic: Reports dizziness, Denies localized weakness and Denies numbness Allergic/Immunologic Allergic/Immunologic: Denies throat swelling PFSH <Xochitl Mancilla DO - Last Filed: 04/28/22 07:52> All Active Problems (Updated 04/28/22 @ 08:26 by Abhijit Gonsales DO) Colitis (Acute) Sacroiliac joint pain (Acute) Status post total hip replacement, right (Acute) DOS 02/06/20 Osteoarthritis of right hip (Acute) Elevated troponin I level (Acute) SVT (supraventricular tachycardia) (Chronic) Medical History (Updated 04/28/22 @ 08:26 by Abhijit Gonsales DO) Asthma Knotting of intestine, bowel or colon Surgical History (Updated 02/14/21 @ 10:04 by Lani Gates) History of appendectomy History of tonsillectomy Hx of colonoscopy Social History Smoking/Tobacco Use Status: Never Smoking risk assessment performed?: Yes Alcohol Intake: never Drug use: Never Substance use type: does not use Do you feel safe at home: Yes Do you feel safe in your relationship?: Yes Exam <Xochitl Mancilla DO - Last Filed: 04/28/22 07:52> Const General: cooperative and uncomfortable Nutritional Appearance: thin Orientation: alert, awake and oriented x3 HENMT Head: normal to inspection Face and sinus: normal facial exam Eyes General: appearance normal, both eyes and all related structures Pupils: PERRL EOM: EOM intact bilaterally Neck Neck: normal visual inspection and No submandibular swelling Lymphatic: no lymphadenopathy noted Chest Chest: normal inspection of the chest and no tenderness Resp Effort & Inspection: normal respiratory effort and able to speak in complete sentences Auscultation: clear to auscultation bilaterally Cardio Rate: regular rate Rhythm: regular rhythm GI Inspection: normal to inspection Palpation: soft, not firm, not rigid and nontender Auscultation: hypoactive bowel sounds Back/Spine/Pelvis Back: no CVA tenderness Back/spine/pelvis image: 1. Localized area of tenderness to palpation to the left lower back left upper buttock region. There is no evidence of rash, lesions, erythema, ecchymosis or edema. Skin General skin exam: no rashes or lesions noted Neuro General: patient alert, patient awake, patient oriented x3 and no meningeal signs Cranial Nerves: CN's II-XI intact bilaterally Cognition: normal cognition Speech: speech normal Motor: muscle tone normal throughout and strength 5/5 throughout Sensory Exam: no sensory deficits noted Extrem General: normal to inspection, full ROM, capillary refill normal, no calf tenderness bilaterally and no edema Psych Appearance: grossly normal Mental Status: mental status grossly normal Speech and Movement: speech and movement normal Affect: normal affect Course <Xochitl Mancilla DO - Last Filed: 04/28/22 07:52> Vital Signs Vital signs: Vital Signs Temperature 98.1 F 04/28/22 06:23 Pulse 77 04/28/22 06:23 Respiratory Rate 16 04/28/22 06:23 Blood Pressure 136/57 L 04/28/22 06:23 Pulse Oximetry 99 04/28/22 06:23 Temperature 98.1 F 04/28/22 06:23 Pulse 77 04/28/22 06:23 Respiratory Rate 16 04/28/22 06:23 Respiratory Effort 04/28/22 06:27 Blood Pressure 136/57 L 04/28/22 06:23 Pulse Oximetry 99 04/28/22 06:23 Oxygen Delivery Method Room Air 04/28/22 06:23 Oxygen Flow Rate 0 04/28/22 06:23 Pain Level 8 04/28/22 06:23 Sign Out <Xochitl Mancilla DO - Last Filed: 04/28/22 07:52> Sign Out Data: Sign Out Comment: Follow-up on imaging and final disposition. If patient feels better and work-up negative, consider diagnosis of lumbar strain or sciatica. Last updated by Xochitl Mancilla DO at 04/28/22 07:53
[2022-04-28 07:00] LABS: Abs Immature Grans 0.01 10^3/uL (0.0-0.06); Absolute Basophil Count 0.03 10^3/uL (0.0-0.2); Absolute Eosinophil Count 0.05 10^3/uL (0.0-0.7); Absolute Monocyte Count 0.33 10^3/uL (0.1-0.8); Absolute Neutrophil Count 2.64 10^3/uL (1.2-6.7); Basophils % 0.6; HCT 41.5 % (36.0-46.0); HGB 13.8 g/dL (11.2-15.7); Immature Grans % 0.2; MCH 31.2 pg (27.0-33.0); MCHC 33.3 % (32.0-36.0); MCV 94 fL (80-95); MPV 9.3 fL (8.0-11.0); Monocytes % 6.8; Neutrophils % 54.4; Platelet Count 296 10^3/uL (130-400); RBC 4.42 10^6/uL (3.93-5.22); RDW 12.3 % (11.7-14.6); RDW-SD 43.1 fL; WBC 4.86 10^3/uL (4.4-10.8)
[2022-04-28 07:16] LABS: Bilirubin Negative (Negative); Blood Trace-intact (Negative); Clarity Clear (Clear); Glucose Negative (Negative); Ketones Trace mg/dL (Negative); Leukocyte Esterase Negative (Negative); Nitrite Negative (Negative); Specific Gravity >= 1.030 (1.005-1.025); Urobilinogen 0.2 EU/dL (Up TO 0.2)
[2022-04-28] MEDS: Ketorolac 30 MG/ML VIAL IVP (07:23)
[2022-04-28 07:24] LABS: Bacteria Few HPF (Negative); C & S Indicated? No; Casts Negative LPF (Negative); Crystals Negative HPF (Negative); Epithelial Cells Rare HPF (Negative); Mucus Negative (Negative); Other Cells Negative (Negative); WBC 0-2 HPF (0-5)
[2022-04-28] MEDS: diazePAM 2 MG TAB PO (07:24)
[2022-04-28] MEDS: Ondansetron 4 MG/2 ML VIAL IVP ×2 (07:24→08:32)
[2022-04-28] MEDS: Normal Saline 1,000 ML 1000 ML IV (07:25)
[2022-04-28 07:26] LABS: ALT 23 U/L (14-59); AST 20 U/L (15-37); Albumin 3.9 g/dL (3.4-5.0); Alkaline Phosphatase 50 U/L (46-116); Anion Gap 4.6 mmol/L (3-11); BUN 15 mg/dL (7-18); Bilirubin, Total 0.5 mg/dL (0.2-1.0); CO2 31.4 mmol/L (21.0-32.0); CREATININE 0.9 mg/dL (0.55-1.02); Calcium 9.3 mg/dL (8.5-10.1); Chloride 103 mmol/L (98-107); Glucose 116 mg/dL (74-106); Lipase 112 U/L (73-393); Potassium 3.6 mmol/L (3.5-5.1); Sodium 139 mmol/L (136-145); Total Protein 7.6 g/dL (6.4-8.2)
--- NOTE | 2022-04-28 08:11 | DI.VRAD_ITS ---
PROCEDURE INFORMATION: Exam: CT Abdomen And Pelvis Without Contrast Exam date and time: 04/28/2022 7:51 AM Age: 71 years old Clinical indication: Abdominal pain; Left; Patient HX: L flank pain, R/O stone vs pyelo TECHNIQUE: Imaging protocol: Computed tomography of the abdomen and pelvis without contrast. COMPARISON: CR XR HIP RT COMPLETE AP PELVIS 02/23/2020 11:05 AM FINDINGS: Liver: The liver is normal in size and contour. Gallbladder and bile ducts: The gallbladder is distended with normal wall thickness and does not demonstrate calcified gallstones. No intra- or extra-hepatic biliary ductal dilatation. Pancreas: The pancreas appears normal. Spleen: The spleen appears normal. Adrenal glands: The adrenals appear normal. Kidneys and ureters: 3 mm calcification in the lower pole of the left kidney likely within the renal parenchyma versus lower pole renal calyx. No hydronephrosis. No perinephric fat stranding. No distal ureteral stones identified. Stomach and bowel: The stomach appears unremarkable. The small bowel loops are not abnormally dilated. The large bowel loops are not abnormally dilated. Circumferential wall thickening in the descending colon (axial series 3, image 243) in the left abdomen with minimal adjacent fat stranding. Questionable fat stranding in the rectosigmoid region. Appendix: No signs of appendicitis. Intraperitoneal space: No ascites or significant fluid collection. Vasculature: The aorta is nonaneurysmal. The IVC appears normal. Lymph nodes: There are no enlarged lymph nodes. Urinary bladder: The bladder is distended and demonstrates no focal contour abnormality. Reproductive: Unremarkable as visualized. Bones/joints: Right total hip arthroplasty noted. Multilevel degenerative changes in the spine. Soft tissues: Unremarkable. IMPRESSION: 1. Findings concerning for left-sided colitis. 2. Questionable left-sided nephrolithiasis. No signs of urinary obstruction. COMMENTS: Evaluation of solid organs and vascular structures is limited as no IV contrast was administered. Dictated and Authenticated by: Rancho Smith MD. Ordering:JUNIOR Leung MD
[2022-04-28] MEDS: Lidocaine 5% Patch 1 PATCH TP (08:32)
[2022-04-28] MEDS: Ondansetron O.D.T. 4 MG TABEF, 3 TABS/BTL PO (08:32)
== END 2022-04-28 08:43 | disposition home or self-care (01) ==
PROVIDERS: Physician Assistant; Emergency Provider Student in an Organized Health Care Education/Training Program; PCP Nurse Practitioner Family
DX: K52.9 Noninfective gastroenteritis and colitis, unspecified (principal); N20.0 Calculus of kidney; J45.909 Unspecified asthma, uncomplicated; M53.3 Sacrococcygeal disorders, not elsewhere classified
CPT/HCPCS: 36415; 80053; 83690; 93005; 96361; 96374; 96375; 96376; 99284; 74176; 81003; 81015; 85025; 93010; 99285; J1885; J2405

== ENCOUNTER 2022-09-25 02:48 | Outpatient (CLI) | payer MEDICARE, BC, SELFPAY | END 2022-09-25 02:49 | disposition home or self-care (01) | LOC: LBO 02:48 | PROVIDERS: PCP Nurse Practitioner Family; Visit Provider Ophthalmology | DX: H02.23 Paralytic lagophthalmos (principal) | CPT/HCPCS: 36415; 83519 ==

== ENCOUNTER → 2023-05-14 01:30 | Outpatient (CLI) | payer MEDICARE, BC, SELFPAY ==
--- NOTE | 2023-05-14 13:05 | DI.MAMMO_ITS ---
Exam(s) MAMMO SCREENING EXAM: MAMMO SCREENING CLINICAL HISTORY: SCREENING, Z12.31 TECHNIQUE: Bilateral full field digital CC and MLO mammographic images were obtained with 3D tomosyn thesis and utilizing computer aided detection (CAD). COMPARISON: Available for comparison. FINDINGS: Masses/Architectural Distortion: None seen. Microcalcifications: No suspicious pleomorphic-type are seen. Skin Thickening/Nipple Retraction: None. IMPRESSION: 1. No significant interval change with no specific features of malignancy noted. 2. Unless there is more urgent need, screening mammography is recommended, as per [place] [employer] guidelines. BI-RADS Category 1 - Negative Breast Density - Category D - Extremely dense Breast density category C or D implies that the patient has dense breast tissue. Dense breast tissue is very common and is not abnormal but dense breast tissue can make it harder to find cancer on a ma mmogram. Also, dense breast tissue may increase their breast cancer risk. This information about the result of the mammogram report was provided to the patient to raise their awareness. Use this report when you speak with the patient about their risks for breast cancer, which includes their family hist ory. At that time, you may recommend for more screening tests (Ultrasound or MRI) as they might be us eful based on their risk. A negative radiographic report should not delay biopsy if a dominant or clinically suspicious mass is present. Up to ten percent of cancers are not identified on mammography. A negative report may reinforce clinical impression. Adenosis and dense breasts may obscure an underlying neoplasm. False positive reports average 6 to 10%. Patient will receive a letter notifying them of these results.
== END ==
PROVIDERS: PCP Nurse Practitioner Family; Visit Provider Nurse Practitioner Family
DX: Z12.31 Encounter for screening mammogram for malignant neoplasm of breast (principal); R92.343 Mammographic extreme density, bilateral breasts
CPT/HCPCS: 77063; 77067

== ENCOUNTER 2024-08-09 00:44 | Outpatient (CLI) | payer MEDICARE, BC, SELFPAY ==
--- NOTE | 2024-08-09 | DI.MAMMO_ITS ---
Exam(s) MAMMO SCREENING EXAM: MAMMO SCREENING CLINICAL HISTORY: Z12.31 Screening. TECHNIQUE: Bilateral full field digital CC and MLO mammographic images were obtained with 3D tomosyn thesis and utilizing computer aided detection (CAD). COMPARISON: 2016 through 2023 FINDINGS: Masses: None seen. Architectural Distortion: None seen. Microcalcifications: No suspicious pleomorphic-type are seen. Skin Thickening/Nipple Retraction: None. IMPRESSION: 1. No significant interval change with no specific features of malignancy noted. 2. Unless there is more urgent need, annual screening mammography is recommended, as per [place] [employer] guidelines. BI-RADS Category 1-negative Breast Density - Category D - extremely dense Breast Density Category D: The mammogram demonstrates the patient's breast tissue is dense. Dense javi ast tissue is very common and is not abnormal but dense breast tissue can make it harder to find canc er on a mammogram. Also, dense breast tissue may increase their breast cancer risk. This information about the result of the mammogram report was provided to the patient to raise their awareness. Use th is report when you speak with the patient about their risks for breast cancer, which includes their f amily history. At that time, you may recommend for more screening tests (Ultrasound or MRI) as they m ight be useful based on their risk. A negative radiographic report should not delay biopsy if a dominant or clinically suspicious mass is present. Up to ten percent of cancers are not identified on mammography. A negative report may reinforce clinical impression. Adenosis and dense breasts may obscure an underlying neoplasm. False positive reports average 6 to 10%.
== END 2024-08-09 01:04 ==
LOC: DI 00:44
PROVIDERS: PCP Student in an Organized Health Care Education/Training Program; Visit Provider Student in an Organized Health Care Education/Training Program
DX: Z12.31 Encounter for screening mammogram for malignant neoplasm of breast (principal); R92.343 Mammographic extreme density, bilateral breasts
CPT/HCPCS: 77063; 77067